=== PATIENT | female | born 1960 | race Two or more races ===

== ENCOUNTER 2019-10-18 11:25 | Inpatient (IN) | payer MEDICARE, OTHER ==
[~2019-10-18] VITALS: Ht 160 cm; Wt 57.1 kg
--- NOTE | 2019-10-18 12:56 | NUR ---
pt cold, gave her warm blanket
[2019-10-18] MEDS: CefTRIAXone/D5W-Rocephin 1gm 50 ML IV ONE ×2 (13:00→14:28)
[2019-10-18] MEDS ORDERED: Dextrose 10%-water IV solution 1,000 ML IV ONE (13:06)
[2019-10-18 13:28] LABS: BASOPHILS # (AUTO) 0.1 X10'3 (0-0.2); BASOPHILS % (AUTO) 1.7 % (0-1); EOSINOPHILS % (AUTO) 0.1 % (0-6); HEMATOCRIT 41.2 % (35.0-45.0); HEMOGLOBIN 13.4 g/dl (12.0-16.0); LYMPHOCYTES # (AUTO) 1.9 X10'3 (1.1-4.8); MEAN CORPUSCULAR HEMOGLOBIN 29.4 PG (27.0-31.0); MEAN CORPUSCULAR HGB CONC 32.5 g/dL (33.0-36.5); MEAN CORPUSCULAR VOLUME 90.5 FL (78-98); MEAN PLATELET VOLUME 8.5 FL (7.4-10.4); MONOCYTES # (AUTO) 0.3 X10'3 (0-0.9); MONOCYTES % (AUTO) 4.7 % (2-12); NEUTROPHILS # (AUTO) 3.8 X10'3 (1.8-7.7); NEUTROPHILS % (AUTO) 62.5 % (42-75); PLATELET COUNT 262 X10'3 (140-440); RED BLOOD COUNT 4.55 X10'6 (4.20-5.60); RED CELL DISTRIBUTION WIDTH 18.6 % (11.5-14.5)
[2019-10-18] MEDS ORDERED: FLUD0.1T PO (13:32)
[2019-10-18] MEDS ORDERED: FLUO-167 PO (13:32)
[2019-10-18] MEDS ORDERED: INSU100I31 SQ (13:32)
[2019-10-18] MEDS ORDERED: AMLO10TA PO (13:32)
[2019-10-18] MEDS ORDERED: ATOR40TA71 PO (13:32)
[2019-10-18] MEDS ORDERED: CARV6.253 PO (13:32)
[2019-10-18 13:33] LABS: ALANINE AMINOTRANSFERASE 21 U/L (12-78); ALBUMIN 2.5 G/DL (3.4-5.0); ALBUMIN/GLOBULIN RATIO 0.5 (1.1-1.5); ALKALINE PHOSPHATASE 155 IU/L (46-116); ANION GAP 8 (8-16); ASPARTATE AMINO TRANSFERASE 32 U/L (10-37); BILIRUBIN,TOTAL 0.3 MG/DL (0.1-1.0); BLOOD UREA NITROGEN 36 MG/DL (7-18); BUN/CREATININE RATIO 7.2 (6.6-38.0); CHLORIDE 103 MMOL/L (99-107); CREATININE 5.02 MG/DL (0.40-0.90); GLUCOSE 83 MG/DL (70-104); MAGNESIUM 1.9 MG/DL (1.5-2.4); POTASSIUM 4.7 MMOL/L (3.5-5.1); SODIUM 138 MMOL/L (135-145); TOTAL CARBON DIOXIDE 27.2 MMOL/L (24-32); TOTAL PROTEIN 7.4 G/DL (6.4-8.2); eGFR 9 ML/MIN
[2019-10-18] MEDS ORDERED: HYDROmorphone inj. 0.5 MG/0.5 ML DISP.SYRIN IV PRN (13:35)
[2019-10-18] MEDS ORDERED: bisacodyl 10mg suppository rectal RC PRN (13:35)
[2019-10-18] MEDS ORDERED: HYDROmorphone 1 mg/ml syringe IV PRN (13:35)
[2019-10-18] MEDS ORDERED: ondansetron/PF 4mg/2ml inj IV PRN (13:35)
[2019-10-18] MEDS ORDERED: HYDROcodone/acetaminophen 5mg/325mg tablet PO PRN (13:35)
[2019-10-18] MEDS ORDERED: acetaminophen 325mg tablet PO PRN (13:35)
[2019-10-18] MEDS ORDERED: diphenhydrAMINE 25mg capsule PO PRN (13:35)
[2019-10-18] MEDS ORDERED: heparin 1,000unit/ml 10ml vial 10 ML IV ONE (13:37)
[2019-10-18] MEDS ORDERED: heparin 1,000 units/ml 10ml inj IV ONE (13:40)
[2019-10-18] MEDS ORDERED: epoetin 20,000 units/ml inj IV ONE (13:40)
[2019-10-18] MEDS ORDERED: albumin (human) 25% 100ml IV 100 ML IV PRN (13:40)
[2019-10-18] MEDS: levoFLOXACIN-Levaquin 250mg/D5 50 ML IV SCH (13:40)
[2019-10-18] MEDS ORDERED: heparin 1,000 units/ml 10ml inj HE ONE ×2 (13:45)
[2019-10-18 13:58] LABS: HEMOGLOBIN A1C 5.6 % (4.5-6.2)
[2019-10-18 14:08] LABS: ANISOCYTOSIS 2+; HYPOCHROMASIA 1+; PLATELET ESTIMATE NORMAL; POLYCHROMASIA FEW
[2019-10-18 14:09] LABS: BURR CELLS FEW; ELLIPTOCYTES FEW; SCHISTOCYTES FEW; TARGET CELLS FEW; TEAR DROP CELLS FEW
[2019-10-18 15:23] VITALS: BP 158/72
--- NOTE | 2019-10-18 15:45 | NUR ---
sPOKE WITH DAUGHTER Shania. SHE WILL COME VISIT MOTHER AFTER WORK. PT IS TO GET DIALYSIS.
[2019-10-18 18:00] VITALS: BP 155/79
--- NOTE | 2019-10-18 18:00 | NUR ---
Received report from Debi NG. assumed care of patient.
--- NOTE | 2019-10-18 18:07 | NUR ---
Problems reprioritized. Patient report given, questions answered & plan of care reviewed with Pippa RN.
[2019-10-18] MEDS: heparin, porcine 5000 units/ml vial SQ SCH (19:58)
[2019-10-18] MEDS ORDERED: temazepam 15mg capsule PO PRN (21:00)
[2019-10-18 22:00] VITALS: BP 165/76
[2019-10-19 06:00] VITALS: BP 155/73
--- NOTE | 2019-10-19 06:10 | NUR ---
Patient in room ORTHO 4010. I have received report from Pippa and had the opportunity to ask questions and assume patient care.
--- NOTE | 2019-10-19 06:10 | NUR ---
Gave report to Emilia NG.
[2019-10-19 07:20] LABS: BASOPHILS # (AUTO) 0.1 X10'3 (0-0.2); BASOPHILS % (AUTO) 1.9 % (0-1); HEMATOCRIT 35.2 % (35.0-45.0); HEMOGLOBIN 11.7 g/dl (12.0-16.0); LYMPHOCYTES # (AUTO) 2.5 X10'3 (1.1-4.8); MEAN CORPUSCULAR HEMOGLOBIN 29.3 PG (27.0-31.0); MEAN CORPUSCULAR HGB CONC 33.1 g/dL (33.0-36.5); MEAN CORPUSCULAR VOLUME 88.5 FL (78-98); MEAN PLATELET VOLUME 7.9 FL (7.4-10.4); MONOCYTES # (AUTO) 0.3 X10'3 (0-0.9); MONOCYTES % (AUTO) 6.2 % (2-12); NEUTROPHILS # (AUTO) 2.1 X10'3 (1.8-7.7); NEUTROPHILS % (AUTO) 40.9 % (42-75); PLATELET COUNT 212 X10'3 (140-440); RED BLOOD COUNT 3.98 X10'6 (4.20-5.60); RED CELL DISTRIBUTION WIDTH 18.5 % (11.5-14.5)
[2019-10-19 07:47] LABS: ALANINE AMINOTRANSFERASE 20 U/L (12-78); ALBUMIN 2.1 G/DL (3.4-5.0); ALBUMIN/GLOBULIN RATIO 0.5 (1.1-1.5); ALKALINE PHOSPHATASE 124 IU/L (46-116); ANION GAP 5 (8-16); ASPARTATE AMINO TRANSFERASE 26 U/L (10-37); BILIRUBIN,TOTAL 0.2 MG/DL (0.1-1.0); BLOOD UREA NITROGEN 15 MG/DL (7-18); BUN/CREATININE RATIO 4.7 (6.6-38.0); CALCIUM 7.7 MG/DL (8.5-10.1); CHLORIDE 103 MMOL/L (99-107); CREATININE 3.22 MG/DL (0.40-0.90); GLUCOSE 115 MG/DL (70-104); MAGNESIUM 1.7 MG/DL (1.5-2.4); PHOSPHORUS 2.9 MG/DL (2.3-4.5); POTASSIUM 4.2 MMOL/L (3.5-5.1); SODIUM 137 MMOL/L (135-145); TOTAL CARBON DIOXIDE 28.7 MMOL/L (24-32); TOTAL PROTEIN 6.1 G/DL (6.4-8.2); eGFR 15 ML/MIN
[2019-10-19] MEDS: levoFLOXACIN-Levaquin 250mg/D5 50 ML IV SCH (08:51)
[2019-10-19] MEDS: heparin, porcine 5000 units/ml vial SQ SCH (08:52)
[2019-10-19 10:00] VITALS: BP 162/77
[2019-10-19] MEDS ORDERED: pneumococcal 23-VAL P-sac vacc 25 mcg/0.5ml vial IMVAC ONE (10:00)
--- NOTE | 2019-10-19 13:36 | NUR ---
DM/renal consults: Pt admit w/ hx ESRD on HD and DM A1C 5.6. Pt admit w/ low GLU but cannot remember what she ate prior to admit. Pt only takes 25 units Lantus HS per EMR. Given A1C <[address] at dialysis center w/ electrolytes WNL not appropriate for eds at this time. Addendum: 10/19/19 at [address] Amended: Links added.
--- NOTE | 2019-10-19 17:59 | NUR ---
Reviewed discharge instructions with pt and family. Pt's daughter, with whom she lives, verbalized understanding. Pt is alert and oriented. Pt's daughter assisted pt with dressing. Pt was wheeled downstairs where she will be driven home by her daughter.
[2019-10-19] MEDS ORDERED: carvedilol 6.25mg tablet PO SCH (20:00)
[2019-10-19] MEDS ORDERED: lactobacillus rhamnosus 10,000 MMU CELLS/CAPSULE PO SCH (20:00)
[2019-10-20] MEDS ORDERED: amLODIPine 5mg tablet PO SCH (08:00)
[2019-10-20] MEDS ORDERED: FLUoxetine 20mg capsule PO SCH (08:00)
[2019-10-20] MEDS ORDERED: atorvastatin 20mg tablet PO SCH (08:00)
== END 2019-10-19 17:55 | disposition home or self-care (01) | DRG 638 ==
LOC: ER 11:26 → ED HOLD 13:32 → ORTHO 4S 15:00
PROVIDERS: ADMIT Internal Medicine Critical Care Medicine; ATTEND Internal Medicine Critical Care Medicine
PROC: 3E0234Z Introduction of Serum, Toxoid and Vaccine into Muscle, Percutaneous Approach (ICD-10-PCS; principal; 2019-10-19)
DX: E11.649 Type 2 diabetes mellitus with hypoglycemia without coma (principal); I12.0 Hypertensive chronic kidney disease with stage 5 chronic kidney disease or end stage renal disease; N39.0 Urinary tract infection, site not specified; N18.6 End stage renal disease; E11.22 Type 2 diabetes mellitus with diabetic chronic kidney disease; F32.9 Major depressive disorder, single episode, unspecified; Z23 Encounter for immunization; Z79.4 Long term (current) use of insulin
CPT/HCPCS: 36415; 70450; 71045; 80053; 82948; 83036; 83605; 83735; 84100; 84145; 85025; 87040; 87081; 90732; 97161; 97530; 99285; G0257; G0378; J0696; J1170; J1644; J1956

== ENCOUNTER 2025-06-05 16:18 | Inpatient (IN) | payer MEDICARE, MEDICAID ==
[2025-06-05] VITALS (8 sets, daily range): BP systolic 93–191; BP diastolic 28–73; PULSE 59–70; RESP 16–31; O2SAT 94–100
[~2025-06-05] VITALS: Ht 152.4 cm; Wt 39.2 kg
[~2025-06-05 16:18] MED LIST: AMLO10TA PO; ATOR40TA71 PO; CARV6.253 PO; FLUO-167 PO
[2025-06-05 16:42] LABS: CREATININE 2.34 MG/DL (0.40-0.90); TOTAL CARBON DIOXIDE 30.8 MMOL/L (24-32); eCRCL 16 ML/MIN; eGFR 21 ML/MIN
[2025-06-05 16:43] LABS: MEAN PLATELET VOLUME 8.1 FL (7.4-10.4); RED CELL DISTRIBUTION WIDTH 20.6 % (11.5-14.5)
[2025-06-05 16:46] LABS: APTT 35 SECONDS (22-32); INR 1.3 INR
--- NOTE | 2025-06-05 16:46 | RADIOLOGY REPORT ---
Exam: CT CT STROKE ALERT History: aloc Technique: [address] images through the posterior fossa and the supratentorial compart ment were acquired without contrast and imaged using soft tissue and bone algorithms. RADIATION DOSE: DLP 846.72 mGy.cm; CTDI vol 46.06 mGy. Comparison: None Findings: There is no evidence of an intracranial hemorrhage, acute large vessel infarct, mass effect, or midli ne shift. There is mild to moderate cerebral atrophy. Chronic small-vessel ischemic changes. Moderate calcification of the carotid siphons. The calvarium, orbits, paranasal sinuses, sella, middle ears, and mastoids are unremarkable. The superficial soft tissues are within normal limits. Impression: 1. No acute intracranial abnormality.
--- NOTE | 2025-06-05 16:54 | ELECTROCARDIOGRAPH REPORT ---
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 Anthony Otoole Measurements Intervals [place] Rate: 75 P: 58 SC: 149 QRS: -36 QRSD: 95 T: 89 QT: 415 QTc: 464 Interpretive Statements Sinus rhythm RSR' in V1 or V2, probably normal variant LVH with secondary repolarization abnormality Electronically Signed On 06-05-2025 18:20:[address] Anthony Otoole Please click the below link to view image of tracing.
--- NOTE | 2025-06-05 16:59 | RADIOLOGY REPORT ---
CHEST RADIOGRAPH Indication: Stroke Alert Technique: Single frontal view of the chest was obtained Comparison: None FINDINGS: Lines and Tubes: Right IJ approach hemodialysis catheter terminating within the right atrium. Lungs: Interstitial prominence with perihilar opacities of bilateral lungs. Obscuration of the left hemidiaphragm. No pneumothorax. Cardiomediastinal contours: Borderline cardiomegaly Bones: No acute osseous abnormality. IMPRESSION: Borderline cardiomegaly with findings suggestive of congestive heart failure / multifocal pneumonia. Possible small left-sided pleural effusion.
[2025-06-05] MEDS ORDERED: iohexol 350 MG/ML 50ML vial IV ONE (17:14)
[2025-06-05 17:16] LABS: PLATELET ESTIMATE DECREASED
[2025-06-05] MEDS ORDERED: niCARDipine-NS 40mg/200ml IVPB 200 ML IV PRN ×2 (18:00→18:04)
--- NOTE | 2025-06-05 18:04 | Physician Documentation ---
History of Present Illness ~ Chief Complaint: Stroke Alert Stated Complaint: ALOC Time Seen by MD: 16:23 Source: EMS, EMS notes reviewed Mode of Arrival: EMS, Stretcher Exam Limitations: clinical condition HPI Chief Complaint: Altered mental status Caveat: Altered mental status, Nigerien-speaking Independent Historians: Paramedics History of Present Illness: Patient is a 64-year-old Nigerien-speaking woman brought in by paramedics from dialysis center because of altered mental status that was sudden 40 minutes into dialysis. Patient's last known well time was approximately 3:00 p.m.. Patient's pulse ox was on the low 90s on room air. Patient was noted to have audible gurgling and rhonchi. Patient was placed on 2 L nasal cannula and pulse ox is 96-98%. Patient's extremities are flaccid and patient's eyes are open. Patient does not follow commands. Patient is nonverbal. Review of systems: All systems were reviewed and are negative except for what is indicated in the history of present illness. Past Medical History: HTN, ESRD Past Surgical History: Av fistula right arm, dialysis catheter right chest Social History: Unknown Medications: Reviewed as documented Nursing Notes Allergies: Reviewed as documented in Nursing Notes Medication Reconciliation Allergies: Coded Allergies: No Known Allergies (Unverified , 10/18/19) Scheduled Amlodipine Besylate (Amlodipine Besylate), 1 TABLET PO DAILY, (Reported) Atorvastatin Calcium (Atorvastatin Calcium), 1 TABLET PO DAILY, (Reported) Carvedilol (Carvedilol), 1 TABLET PO BID, (Reported) Fluoxetine HCl (Fluoxetine HCl), 1 CAP PO DAILY, (Reported) Past Medical History Past Medical History: Diabetes Review of Systems All Other Systems at this time: Reviewed and Negative Unable to obtain complete ROS: altered mental status Physical Exam Vital Signs: RN Vital Signs have been reviewed: Yes, Heart Rate: 74, Respiratory Rate: 22, BP: 196/68, Pulse Oximetry: 93, Weight: 42.000 Oxygen Flow Rate: 0 Pulse Oximetry Reflects: adequate oxygenation General Appearance General Appearance: Critically ill-appearing, severe distress HEENT: Normal OP, moist oral mucosa, no extraocular movements, gaze is forward, opacification of the left pupil, right pupil is 3-4 mm and fixed, decreased gag reflex Neck: supple, normal ROM, trachea midline Pulmonary: Moderate respiratory distress, tachypneic, breath sounds equal, bilateral audible rhonchi Cardiac: RRR, no murmur, rub or gallop, Chest: Outwardly normal-appearing, dialysis catheter in the right chest GI: nondistended, soft, nontender, normal bowel sounds, no guarding, no rebound Extremities: normal ROM, no swelling, non-tender, av fistula in the right arm Skin: intact, dry, warm, no rashes Neuro: GCS of nine, unresponsive, extremities are flaccid seems to feel pain but does not move extremities Psych: Unable to assess Procedures Intubation Time of Intubation: 18:10 Intubation Method: orotracheal Endotracheal Tube Size: 7 Medications: Etomidate, other (Rocuronium) ETT Confirmation: Ascultation, CO2 Detector, Direct Visualization, Condensation in ETT Breath Sounds After Intubation: equal Intubation Complications: no complications Post Intubation Xray: Yes Progress Results/Orders Results/Orders Orders - JAMES GREEN MD Electrocardiogram (06/05/25 16:23) Urinalysis, Cult If Indicated (06/05/25 16:23) Chest,Single View (06/05/25 16:45) Ct Stroke Alert (06/05/25 16:30) * Vital Signs Routine* [id number] (06/05/25 16:23) * Blood Glucose Assessment * ONCE (06/05/25 16:23) * Npo Until Passed Bedside Swa (06/05/25 16:23) Nursing Swallow Screen (06/05/25 16:23) Straight Cath For Urine Sample (06/05/25 16:23) Cta Neck/Head (06/05/25 17:25) Levetiracetam-[id number]/100ml (Levetira (06/05/25 17:43) Chest,Single View (06/05/25 ) Nicardipine-Ns 40mg/200ml Ivpb (Cardene- (06/05/25 18:05) Propofol 1000mg/100ml Bottle (Diprivan I (06/05/25 18:25) Triglycerides (06/06/25 03:00) Triglycerides (06/13/25 03:00) Triglycerides (06/20/25 03:00) Triglycerides (06/27/25 03:00) Triglycerides (07/04/25 03:00) Completed Orders - JAMES GREEN MD Electrocardiogram (06/05/25 16:23) Cbc/Diff (06/05/25 16:23) BMP (06/05/25 16:23) Pt Inr (06/05/25 16:23) PTT (06/05/25 16:23) Type And Screen (06/05/25 16:23) Chest,Single View (06/05/25 16:45) Ct Stroke Alert (06/05/25 16:30) Cta Neck/Head (06/05/25 17:25) Iohexol 350mg/Ml 50ml Inj (Omnipaque 350 (06/05/25 17:14) Nicardipine-Ns 40mg/200ml Ivpb (Cardene- (06/05/25 18:00) Chest,Single View (06/05/25 ) Propofol 1000mg/100ml Bottle (Diprivan I (06/05/25 18:25) Vital Signs 06/05/25 06/05/25 06/05/25 06/05/25 16:20 16:34 16:34 17:13 Pulse 75 75 74 Resp 22 24 22 B/P (MAP) 209/74 196/69 196/68 (110) Pulse Ox 98 94 93 O2 Flow Rate 2.0 0 Laboratory Tests Test 06/05/25 16:27 White Blood Count 9.7 Red Blood Count 4.19 L Hemoglobin 10.8 L Hematocrit 35.0 Mean Corpuscular Volume 83.6 Mean Corpuscular Hemoglobin 25.9 L Mean Corpuscular Hemoglobin Concent 31.0 L Red Cell Distribution Width 20.6 H Platelet Count 96 L Mean Platelet Volume 8.1 Neutrophils (%) (Auto) 85.2 H Lymphocytes (%) (Auto) 10.7 L Monocytes (%) (Auto) 3.8 Eosinophils (%) (Auto) 0 Basophils (%) (Auto) 0.3 Neutrophils # (Auto) 8.2 H Lymphocytes # (Auto) 1.0 L Monocytes # (Auto) 0.4 Eosinophils # (Auto) 0.0 Basophils # (Auto) 0.0 CBC Comment Platelet Estimate Decreased Red Blood Cell Morphology Perf Polychromasia Few Basophilic Stippling Anisocytosis 3+ Target Cells Few Prothrombin Time 13.1 H INR International Normalized Ratio 1.3 Activated Partial Thromboplast Time 35 H Coagulation Comments Sodium Level 134 L Potassium Level 3.1 L Chloride Level 98 L Carbon Dioxide Level 30.8 Anion Gap 5 L Blood Urea Nitrogen 27 H Creatinine 2.34 H Estimated GFR/1.73 m2 21 BUN/Creatinine Ratio 11.5 Glucose Level 162 H Calcium Level 8.0 L Albumin 1.7 L Chemistry Comments Medical Decision Making Findings Differential diagnosis includes but is not limited to: Hemorrhagic stroke, thrombotic stroke, status epilepticus, electrolyte abnormalities, hypertensive encephalopathy EKG independent interpretation: Chest x-ray, single view, indication: Independent interpretation: Pulmonary vascular congestion, dialysis catheter present in the right chest, normal mediastinum, cardiomegaly Repeat chest x-ray, indication: Post intubation Impression: Cardiomegaly, dialysis catheter present, pulmonary vascular congestion, endotracheal tube above the jez CT without IV contrast, indication: Altered mental status Impression: No acute intracranial abnormality CTA of the head and neck, indication: Altered mental status Impression: Limited evaluation of the aortic arch, origin of proximal major arch vessels. [id number]-[id number] atherosclerotic calcification of the right cavernous and supraclinoid ICA with Mild to moderate atherosclerotic calcification of the left cavernous ICA and Moderate atherosclerotic calcification of the left supraclinoid ICA. Otherwise, no hemodynamically significant stenosis aneurysmal dissection involving the major intracranial and neck vessels. Tree-in-bud Opacities of bilateral upper lobes with ground-glass opacities of the left upper lobe . Correlate for infectious process. Laboratory data independent interpretation: CBC: Unremarkable, moderate anemia, hemoglobin 10.8 CMP: Sodium 134, mild hypokalemia potassium 3.1, BUN 27, creatinine 2.34 this is the patient's baseline as she has chronic end-stage renal disease PT elevated at 13.1, INR elevated 1.3, PTT elevated at 35 Urinalysis: Emergency department course/medical decision-making: Patient presents with altered mental status and hypertension. Patient critically ill patient's likely aspirated as she is unresponsive in likely not handling her secretions. CTA of the head is negative acute. No evidence of hemorrhagic stroke. CTA of the head and neck performed done to rule out basilar artery occlusion. No evidence of large vessel occlusion. Laboratory work is unremarkable. Patient will be started on Cardene drip to treat what might be hypertensive encephalopathy. Consultation/communications: 5:50 p.m..: Case discussed with our personal care aid Dr. Camara for admission. 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 I provided critical care services, which included medication orders, frequent reevaluations of the patient's condition and response to treatment, ordering and reviewing test results, and discussing the case with necessary consultants. Critical care time was exclusive of necessary procedure time. The critical care time associated with the care of the patient was 80 minutes. Signature Scribe Signature: No scribe Attestation: No [email or web address] JAMES GREEN MD Jun 05, 2025 18:04
[2025-06-05] MEDS: niCARDipine-NS 40mg/200ml IVPB 200 ML IV SCH (18:05)
--- NOTE | 2025-06-05 18:12 | RADIOLOGY REPORT ---
INDICATION: aloc COMPARISON: None TECHNIQUE:CTA head and neck with intravenous contrast. 3D/MIP image postprocessing was performed and images were used for interpretation and reporting. Radiation Dose Information: CT Dose: CTDI volume is 23.8 mGy. Dose-length product is 329.68 mGy*cm FINDINGS: CTA neck: Normal 3-vessel origin left-sided aortic arch motion artifact limits evaluation of the arch and proxi mal part of the major arch vessels. Mild atherosclerotic calcification of the origin and proximal sub clavian arteries. Otherwise, the subclavian arteries unremarkable. Artifact limits evaluation of the origin of the common carotid arteries. Mild atherosclerotic calcifi cation of bilateral carotid bulbs. Otherwise, the common carotid arteries and bilateral cervical ICA s unremarkable. Mild narrowing at the origin of the left vertebral artery. Otherwise, the vertebral arteries unremar kable with left dominant vertebral artery. CTA head: Bilateral ACAS, anterior communicating artery and bilateral MCAs are unremarkable. Xkpy-bu-ihkttlpi atherosclerotic calcification of the right cavernous and supraclinoid ICA with Mild to moderate ather osclerotic calcification of the left cavernous ICA and Moderate atherosclerotic calcification of the left supraclinoid ICA. Otherwise, bilateral intracranial ICAs unremarkable. 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 Mild hypoplasia of the right intracranial vertebral artery. The dur al venous sinuses opacify normally. Xuvd-cq-zwnmokxb body wall edema. Heterogeneous appearance of the thyroid gland. tree-in-bud Opacitie s of bilateral lungs with patching ground-glass opacities of the left upper lobe. Mild mucosal thicke joe of the mastoids. IMPRESSION: Limited evaluation of the aortic arch, origin of proximal major arch vessels. Gelw-ll-uerqnhwk atherosclerotic calcification of the right cavernous and supraclinoid ICA with Mild to moderate atherosclerotic calcification of the left cavernous ICA and Moderate atherosclerotic calc ification of the left supraclinoid ICA. Otherwise, no hemodynamically significant stenosis aneurysma l dissection involving the major intracranial and neck vessels. Tree-in-bud Opacities of bilateral upper lobes with ground-glass opacities of the left upper lobe . Correlate for infectious process.
[2025-06-05] MEDS: propofol 1000mg/100ml bottle 100 ML IV ONE ×3 (18:30→18:38)
[2025-06-05] MEDS ORDERED: morphine 4 MG/ML inj SYRINge IV PRN (18:35)
[2025-06-05] MEDS: LidoCAINE 2% Topical Jelly 11mL syringe (UROJET) TOP ONE (18:35)
[2025-06-05] MEDS ORDERED: ondansetron/PF 4mg/2ml inj IV PRN (18:35)
[2025-06-05] MEDS ORDERED: albuterol 2.5 MG/3 ML nebule NEB PRN (18:35)
[2025-06-05] MEDS ORDERED: magnesium hydroxide 30ml (MOM) UD suspension PO PRN (18:35)
[2025-06-05] MEDS ORDERED: ipratropium/albuterol 3ml nebule NEB PRN (18:35)
--- NOTE | 2025-06-05 18:42 | HISTORY AND PHYSICAL-Residence ---
History & Physical Providers to CC Resident Creating Document: SANDRO HARRISON, LIVIA ~ History of Present Illness Reason for Admit\Complaint: Hypertensive emergency with acute metabolic encephalopathy History of Present Illness 64-year-old Sami-speaking woman(poor historian-non verbal) brought in by paramedics from dialysis center because of altered mental status that was sudden 40 minutes into dialysis. Patient's last known well time was approximately 3:00 p.m.. Patient's pulse ox was on the low 90s on room air. Patient was noted to have audible gurgling and rhonchi. Patient was placed on 2 L nasal cannula and pulse ox is 96-98%. Patient's extremities are flaccid and patient's eyes are open. Patient does not follow commands. Patient is nonverbal. She is unable to protect the airway and hearing the gurgling sounds . Reason for ICU consultation: Acute metabolic encephalopathy with hypertensive emergency. Intubation and mechanical ventilation for TBT(tracheobronchial toilet) Allergies: Coded Allergies: No Known Allergies (Unverified , 10/18/19) Home Medications Home Medications Active Reported Carvedilol 6.25 Mg Tablet 1 Tablet PO BID Fluoxetine HCl 20 Mg Capsule 1 Cap PO DAILY 30 Days Amlodipine Besylate 10 Mg Tablet 1 Tablet PO DAILY Atorvastatin Calcium 40 Mg Tablet 1 Tablet PO DAILY Past Medical History Past Medical History Hypertension ESRD Past Surgical History Surgical History Comment Past Surgical History: Av fistula right arm, dialysis catheter right chest Past Social History Social History Comment Unknown ROS All Other Systems: Reviewed and Negative ROS Could not able to review in full. Unable to obtain: altered mental status Exam Vitals: Vital Signs Date Time Temp Pulse Resp B/P (MAP) Pulse Ox O2 Delivery O2 Flow Rate FiO2 06/05/25 18:30 198/75 06/05/25 18:14 70 19 99 50 06/05/25 17:13 0 General: General Appearance: Critically ill-appearing, severe distress. Intubated and on mechanical ventilation with FiO2 of 50 HEENT: Normal OP, moist oral mucosa, no extraocular movements, gaze is forward, opacification of the left pupil, right pupil is 3-4 mm and fixed, decreased gag reflex Neck: supple, normal ROM, trachea midline Pulmonary: Moderate respiratory distress, tachypneic, breath sounds equal, diffuse bilateral crepitations over infrascapular and interscapular and suprascapular areas Cardiac: RRR, no murmur, rub or gallop, Chest: Outwardly normal-appearing, dialysis catheter in the right chest GI: nondistended, soft, nontender, normal bowel sounds, no guarding, no rebound Extremities: normal ROM, no swelling, non-tender, av fistula in the right arm Skin: intact, dry, warm, no rashes Neuro: GCS of nine, unresponsive, extremities are flaccid seems to feel pain but does not move extremities Psych: Unable to assess Diagnostic Data Last Recorded Lab Results: 06/05/25 1627 06/05/25 1627 Diagnostic Data: Laboratory Tests Test 06/05/25 16:27 Prothrombin Time 13.1 SECONDS (9.0-12.0) H INR International Normalized Ratio 1.3 INR Activated Partial Thromboplast Time 35 SECONDS (22-32) H Coagulation Comments Advance Care Planning Advanced Care planning: Add on additional 30 min Additional Plan Cardiorespiratory: Acute hypoxemic respiratory failure Hypertensive emergency with Acute pulmonary edema Multifocal bilateral pneumonia, aspiration pneumonia Blood pressures are elevated to is BP of 200s ABG is showing elevated pCO2, PO2 80.6, bicarbonate 32 On vanc pharmacy to dose and Zosyn 3.375 q.12h to cover multifocal bacterial pneumonia Gram-positive, Gram-negative, anaerobic considering her multiple hemodialysis cycles with [facility] She was not able to protect airway and we intubated for tracheobronchial toilet and currently on FiO2 of 50 Sedated with fentanyl and propofol which could help with lowering the blood pressure Started on nicardipine drip Acute metabolic encephalopathy Bilateral internal carotid artery disease without significant stenosis Intubated and sedated with fentanyl and propofol and on mechanical ventilation It could be secondary to hypertensive emergency with bilateral aspiration pneumonia On nicardipine drip, vanc and Zosyn based on EGFR Renal: JAYNE on chronic kidney disease Hyponatremia Hypokalemia Hypochloremia Serum creatinine is 2.34 Baseline creatinine on 10/18/2019 is 5.02 and 3.22 on 10/19/2019 We will continue to monitor CMP We will consult home planning consultant salesperson in a.m. for possible hemodialysis Hematological: Normocytic hypochromic anemia Thrombocytopenia Hemoglobin and hematocrit and the thrombocytosis on lower side it could be secondary to underlying chronic kidney disease Continue to monitor H and H and we will transfuse if less than 7 Code status: Full code Diet: NPO DVT prophylaxis: Heparin Lines and tubes: Peripheral lines/right internal jugular vein central line/intubation and on mechanical ventilation Prognosis: Guarded Sandro Harrison ICU resident, PGY 2 Date of Service: Jun 05, 2025 Billing Provider[facility]DR[facility] Jun 05, 2025 18:42
--- NOTE | 2025-06-05 18:48 | RADIOLOGY REPORT ---
CHEST RADIOGRAPH Indication: INTUBATION Technique: DI CHEST,SINGLE VIEW COMPARISON: None FINDINGS: Right IJ Perma catheter tip projects over the cavoatrial junction. Endotracheal tube tip p rojects 3.3 cm above the jez. Nasogastric tube projects towards stomach. The cardiac silhouette is enlarged. The lungs demonstrate bilateral patchy airspace opacities. The pu lmonary vasculature is prominent. Small bilateral pleural effusions. Aortic atherosclerotic disease. Epicardial pacer leads. There is no pneumothorax. IMPRESSION: As above
[2025-06-05 18:50] LABS: ABG BASE EXCESS 6.3 mmol/L (-2.0-3.0); ABG HCO3 32.0 mmol/L (21.0-28.0); ABG OXYGEN SATURATION 96.3 % (94.0-98.0); ABG PCO2 (T) 49.6 mmHg (32.0-45.0); ABG PH (T) 7.424 (7.350-7.450); ABG PO2 (T) 80.6 mmHg (83.0-108.0); ALLEN'S TEST Modified; FCOHb 1.2 % (0.5-1.5); FHHb 3.6 % (0.0-5.0); FIO2 50.0 mmHg/%; FMetHb 0.3 % (0.0-1.5); FO2Hb 94.9 % (94.0-98.0); MODE VENT - AC/PRVC; PATIENT TEMPERATURE 36.0; PEEP 5 cm H2O; RESPIRATORY RATE 12 b/min; TIDAL VOLUME 250 mL; TOTAL HEMOGLOBIN 11.3 G/dl (12.0-16.0)
[2025-06-05] MEDS: LevETIRAcetam 1,000MG in NS 100ml IV.SOLN premix IV SCH (18:57)
[2025-06-05] MEDS: CefTRIAXone 2gm/D5W 50ml BAG 50 ML IV SCH (19:00)
[2025-06-05 19:10] LABS: PHOSPHORUS 1.7 MG/DL (2.3-4.5)
[2025-06-05] MEDS: PERFLUTREN PROTEIN-A MICROSPHR (Optison) 0.22 MG/ML 3ML VIAL IV ONE (19:57)
--- NOTE | 2025-06-05 20:43 | PROCEDURE NOTE- Residance ---
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 Kearns & Dr. 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 Kearns and Dr. Sandro Ruff The procedure was emergent, the patient was unable to provide consent, and a designee was not immediately available. PROCEDURE SUMMARY: The [facility] Central Line Insertion Practices form was completed by an independent observer. starting with the first handwash prior to starting sterile technique. A time out was performed. Our hands were washed immediately prior to the procedure. we wore a surgical cap, mask with protective eyewear, full gown and sterile gloves throughout the procedure. The patient was placed in Trendelenburg position. RIGHT side neck with chest was prepped using chlorhexidine scrub and draped in sterile fashion using a full drape and sterile probe cover and sterile gel employed. The medial and lateral heads of the sternocleidomastoid muscle were identified as was the carotid pulse. The Internal Jugular vein was identified using the ultrasound. Anesthesia was achieved over the vein using 1% lidocaine. Using real-time out of plane guidance, the introducer needle was inserted into the Internal Jugular vein under direct ultrasound visualization. Venous blood was withdrawn. The syringe was removed and a guidewire was advanced into the introducer needle. The guidewire was visualized in the Internal Jugular Vein by ultrasound. A small incision was made at the skin surface with a scalpel and the introducer needle was exchanged for a dilator over the guidewire. After appropriate dilation was obtained, the dilator was exchanged over the wire for a central venous catheter. The wire was removed and the catheter was sutured in placed. A sterile sorbaview shield was placed over the catheter at the insertion site. The patient tolerated the procedure without any hemodynamic compromise. At time of procedure completion, all ports aspirated and flushed properly. Post- procedure chest x-ray is normal. Estimated blood loss is less than 5 mL Estimated Blood Loss Less than 5 mL Complication None X-Ray Findings No pneumothorax Date of Service: Jun 05, 2025 Billing Provider: ALEXSANDRA KEARNS MD, VENKATESH, RES Jun 05, 2025 20:43
--- NOTE | 2025-06-05 21:12 | RADIOLOGY REPORT ---
CHEST RADIOGRAPH Indication: CENTRAL LINE PLACEMENT Technique: Single frontal view of the chest was obtained COMPARISON: DI CHEST,SINGLE VIEW on DOS: 06/05/25, DI CHEST,SINGLE VIEW on DOS: 06/05/25 FINDINGS: Lines and Tubes: New right internal jugular central venous catheter tip projects over the distal supe rior vena cava. Remaining lines and tubes unchanged. Lungs: Stable patchy multifocal bilateral pulmonary airspace disease and small bilateral pleural effu sions. No pneumothorax. Cardiomediastinal contours: Unremarkable Bones: Unremarkable IMPRESSION: 1. Stable patchy multifocal bilateral pulmonary airspace disease and small bilateral pleural effusion s. 2. New right internal jugular central venous catheter. Remaining lines and tubes unchanged.
[2025-06-05] MEDS: vancomycin/NS 1 GM ADD-VANTAGE 250 ML X 1 DOSE IV PRN (21:21)
[2025-06-06] VITALS (40 sets, daily range): BP systolic 77–170; BP diastolic 29–56; PULSE 43–77; RESP 0–33; TEMP 97.7; O2SAT 87–100
[2025-06-06] MEDS: piperacillin/tazo 3.375gm/50ml 50 ML IV SCH (00:28)
[2025-06-06] MEDS: heparin, porcine 5000 units/ml vial SQ SCH (00:53)
--- NOTE | 2025-06-06 01:25 | [facility]URO CONSULT REPORT ---
[facility] Procedure Note [facility] Procedure Note Consult [facility] Note # Demographics Consult Type: Acute Stroke Level 1 (0-4.5 hrs) Patient Location: Emergency Room First Name: MADDI Last Name: KEYON Date of : 11/25/1963 Age: 61 Gender: Female Facility: [facility] Time of Initial Page (): 06/05/2025 16:23 Time of Return Call ( Time): 06/05/2025 16:25 # HPI History: 61 yo F [place] speaking CKD on HD, 40 min into HD unresponsive, LKN 3 pm AT HCT SBP 209 Aspirated, rhonchi, staring, R pupil 3-4 mm fixed, L pupil opacified likely blind No movement Getting CXR when on video # Scores Time of exam and NIHSS (): 06/05/2025 16:45 Motor Arm Left 5a: [3] = No effort against gravity Motor Arm Right 5b: [3] = No effort against gravity Motor Leg Left 6a: [3] = No effort against gravity NIHSS Total: 9 # Data Head CT: - per radiologist read - no bleed CTA Head: - no large vessel occlusion - per radiologist read CTA Neck: - patent vessels - per radiologist read signs of aspiration/infection in lungs # Assessment Impression: - Altered Mental Status Unresponsive, will test broadly, treat for possible seizure, obtain CTA to rule out basilar occlusion. # Plan Thrombolytic/Intervention: Possible IA candidate Thrombolytic Exclusion: non-focal exam, poorly responsive Possible IA Candidate: - CTA pending Target Blood Pressure: - SBP < 220 - DBP < 120 Labs: - ua - urine drug screen - comprehensive metabolic panel - CBC - Ammonia - TSH - B12 EtOH Imaging: (urgency: STAT): - CT Angiogram Head and CT Angiogram Neck AND call back with results if abnormal Imaging: (urgency: routine): - MRI Brain without contrast Diagnostic Test: - EEG Medication: - aspirin 81 mg daily - levetiracetam (Keppra) 500 mg twice daily Keppra 60 mg/kg, Ativan 1 mg IV Other: - If patient has any neurological deterioration please call me back immediately - permissive hypertension - I have discussed my recommendations with the referring provider # Logistics Attestation of consult completion: The patient is located at: [facility]. Facility staff participated in the visit. I performed this telemedicine visit from my offsite office utilizing interactive 2 way audio and visual telecommunication technology. Total time spent in telemedicine encounter: I spent 20 minutes reviewing clinical data and/or imaging, obtaining history, examining the patient, communicating with the onsite care team, and in preparation of this report. # Demographics First Name: MADDI Last Name: [facility] Facility: [facility] Electronically signed at 06/06/2025 01:24 ([place] Time) by Felipe Modi MD Neuro Consult Order placed for: Yes FELIPE MODI MD Jun 06, 2025 01:25
[2025-06-06] MEDS: VANCOMYCIN LEVEL IV SCH (03:00)
[2025-06-06 03:12] LABS: ABG BASE EXCESS 2.0 mmol/L (-2.0-3.0); ABG HCO3 26.5 mmol/L (21.0-28.0); ABG OXYGEN SATURATION 95.7 % (94.0-98.0); ABG PCO2 (T) 39.3 mmHg (32.0-45.0); ABG PH (T) 7.442 (7.350-7.450); ABG PO2 (T) 74.2 mmHg (83.0-108.0); ALLEN'S TEST Modified; FCOHb 1.4 % (0.5-1.5); FHHb 4.2 % (0.0-5.0); FIO2 35.0 mmHg/%; FMetHb 0.3 % (0.0-1.5); FO2Hb 94.1 % (94.0-98.0); MODE VENT - AC/PRVC; PATIENT TEMPERATURE 36.0; PEEP 5 cm H2O; RESPIRATORY RATE 16 b/min; TIDAL VOLUME 250 mL; TOTAL HEMOGLOBIN 11.0 G/dl (12.0-16.0)
[2025-06-06] MEDS: dextrose 50%-water 50ml dispensing syringe IV ONE ×2 (03:18→14:56)
[2025-06-06 03:32] LABS: MEAN PLATELET VOLUME 8.3 FL (7.4-10.4); RED CELL DISTRIBUTION WIDTH 20.6 % (11.5-14.5)
[2025-06-06 03:45] LABS: CREATININE 2.78 MG/DL (0.40-0.90); TOTAL CARBON DIOXIDE 31.8 MMOL/L (24-32); eCRCL 13 ML/MIN; eGFR 17 ML/MIN
[2025-06-06] MEDS: potassium Cl 20mEq/100mL bag 100 ML IV SCH (06:16)
--- NOTE | 2025-06-06 06:44 | RADIOLOGY REPORT ---
CHEST RADIOGRAPH Indication: vented Technique: Single frontal view of the chest was obtained COMPARISON: DI CHEST,SINGLE VIEW on DOS: 06/05/25, DI CHEST,SINGLE VIEW on DOS: 06/05/25, DI CHEST,SING LE VIEW on DOS: 06/05/25 FINDINGS: Lines and Tubes: Unchanged. Lungs: Mild interval progression in multifocal bilateral pulmonary airspace disease. Pleura: No effusion. No pneumothorax. Cardiomediastinal contours: Unremarkable Bones: Unremarkable IMPRESSION: 1. Mildly Progressive multifocal bilateral pulmonary airspace disease. 2. Lines and tubes unchanged.
[2025-06-06] MEDS ORDERED: magnesium Cl slow-release 64mg tablet PO PRN (07:40)
[2025-06-06] MEDS ORDERED: potassium Cl 40MEQ/1/2NS 520ml 520 ML IV PRN (07:40)
[2025-06-06] MEDS ORDERED: magnesium sulf-water 2g/50mL 50 ML IV PRN (07:40)
[2025-06-06] MEDS ORDERED: magnesium sulf-water 4G/100mL 100 ML IV PRN ×2 (07:40→10:45)
[2025-06-06] MEDS ORDERED: potassium Cl 40MEQ/270ML bag 270 ML IV PRN (07:40)
[2025-06-06] MEDS ORDERED: potassium Cl 20 mEq SR tablet PO PRN ×2 (07:40)
[2025-06-06] MEDS ORDERED: aspirin 81mg, enteric-coated 1 TAB TABLET.DR PO SCH (08:00)
[2025-06-06] MEDS ORDERED: azithromycin/NS 500mg/250ml 250 ML IV SCH (08:00)
--- NOTE | 2025-06-06 09:31 | CONSULTATION REPORT - RESIDENT ---
Consult Providers to CC Resident Creating Document: EDWIGETYRADESTINI RES History of Present Illness Reason for Admit\Complaint: AMS History of Present Illness This is a 64-year-old female patient with a past medical history of ESRD on dialysis was transferred to the hospital from the dialysis center after she collapsed within 40 minutes of starting her dialysis. Most of the history has been obtained from the ER physicians notes and ICU physicians. No further history has been available to us. Patient is intubated and sedated on our exam. She is kindly being treated for acute hypoxemic respiratory failure from possible aspiration pneumonia and altered mental status with kindly unidentified etiology. Allergies: Coded Allergies: No Known Allergies (Unverified , 10/18/19) Home Medications Home Medications Active Reported Carvedilol 6.25 Mg Tablet 1 Tablet PO BID Fluoxetine HCl 20 Mg Capsule 1 Cap PO DAILY 30 Days Amlodipine Besylate 10 Mg Tablet 1 Tablet PO DAILY Atorvastatin Calcium 40 Mg Tablet 1 Tablet PO DAILY Past Medical History Past Medical History Hypertension, depression, ESRD, hyperlipidemia Past Surgical History Surgical History Comment Unknown Past Social History Social History Comment Unknown ROS ROS Unable to be obtained Exam Vitals: Vital Signs Date Time Temp Pulse Resp B/P (MAP) Pulse Ox O2 Delivery O2 Flow Rate FiO2 06/06/25 08:38 65 19 98 35 06/06/25 06:00 112/35 (60) Mechanical Ventilator 06/06/25 02:00 96.8 06/05/25 18:35 0 General: General: Intubated and sedated Resp: Forced bilateral breath sounds Heart: Regular Rate and rhythm, normal S1 and S2 without murmur, rub or gallop. Abdomen: Soft and non tender no organomegaly Extremities: No cyanosis,clubbing or edema. Right upper arm AV fistula Skin: Warm and Dry. Diagnostic Data Last Recorded Lab Results: 06/06/25 0300 06/06/25 0300 Diagnostic Data: Laboratory Tests Test 06/05/25 16:27 Prothrombin Time 13.1 SECONDS (9.0-12.0) H INR International Normalized Ratio 1.3 INR Activated Partial Thromboplast Time 35 SECONDS (22-32) H Coagulation Comments Additional Plan ESRD Dialysis at [facility] Unknown regular scheduled dates Creatinine today 2.7, with hypokalemia and normal other electrolytes Low blood pressures, unable to tolerate dialysis. Plan for CRRT today. Continue replacing the potassium. 4K bath ordered We will continue closely following CMP and performed dialysis accordingly Acute hypoxemic respiratory failure: Flash pulmonary edema versus aspiration pneumonia Intubated and mechanically ventilated; minimal oxygen requirements Chest x-ray reveals multifocal bilateral opacities. CT reveals tree-in-bud opacities; in line with pneumonia Currently being managed empirically with antibiotics including vanc, Zithromax and Zosyn. Recommend using the antibiotics with dialysis CRRT to help pulmonary edema Acute metabolic encephalopathy: CT head and CTA head ruled out acute stroke and vascular abnormalities intracranially Follow tox screen Follow fluoxetine levels; however patient was brought in with flaccidity We will benefit from contacting family regarding any recent travel history Currently being evaluated by an EEG Tele neurology recommends Keppra and aspirin. Also recommends MRI head Lines: PIV, dialysis catheter Code status: Full code 75 minutes spent in consultation, evaluation, care coordination Destini Sarmiento PGY3, Internal medicine resident Date of Service: Jun 06, 2025 Billing Provider: ODIN RILEY III, DEEPANJALI, RES Jun 06, 2025 09:31 ODIN RILEY III, DO Jun 06, 2025 15:50
[2025-06-06] MEDS: FENTANYL-0.9 % NACL/PF 100 ML IV SCH (09:52)
[2025-06-06] MEDS ORDERED: NORepinephrine 8mg/ 250ml NS 250 ML IV PRN (10:05)
[2025-06-06] MEDS: NORepinephrine 8mg/ 250ml NS 250 ML IV ONE (10:43)
[2025-06-06] MEDS ORDERED: calcium chloride inj. 1,000 MG in normal saline 100ml IV soln 100 ML IV PRN (10:45)
--- NOTE | 2025-06-06 12:54 | PROGRESS NOTE- Residence ---
Progress Note - Resident Providers to CC Resident Creating Document: ASHELY HARRISON RES ~ Antibiotic Timeout Antibiotic Ordered?: Yes Subjective Seen and examined the patient at bedside. Not responding to verbal commands. Blood pressure is on soft side today but initially admitted for hypertensive emergency with blood pressures more than 200. Did not make any urine. Objective Vital Signs Date Time Temp Pulse Resp B/P (MAP) Pulse Ox O2 Delivery O2 Flow Rate FiO2 06/06/25 11:00 20 35 06/06/25 11:00 97.7 72 126/47 (73) 98 Mechanical Ventilator 06/05/25 18:35 0 Result Diagram: 06/06/25 0300 06/06/25 0300 General Appearance: Critically ill-appearing, in mild distress. Intubated and on mechanical ventilation with FiO2 of 35% and PEEP of 5 and sedated with fentanyl and propofol HEENT: Normal OP, moist oral mucosa, no extraocular movements, gaze is forward, opacification of the left pupil, right pupil is 3-4 mm and fixed, decreased gag reflex Neck: supple, normal ROM, trachea midline Pulmonary: Moderate respiratory distress, tachypneic, breath sounds equal, bilateral crepitations over infrascapular and interscapular and suprascapular areas improved a little bit Cardiac: RRR, no murmur, rub or gallop, Chest: Outwardly normal-appearing, dialysis catheter in the right chest GI: nondistended, soft, nontender, normal bowel sounds, no guarding, no rebound Extremities: normal ROM, no swelling, non-tender, av fistula in the right arm Skin: intact, dry, warm, no rashes Neuro: unresponsive, extremities are flaccid seems to feel pain but does not move extremities Coagulation Studies Laboratory Tests Test 06/05/25 16:27 Prothrombin Time 13.1 SECONDS (9.0-12.0) H INR International Normalized Ratio 1.3 INR Activated Partial Thromboplast Time 35 SECONDS (22-32) H Coagulation Comments Advance Care Planning Advanced Care planning: Add on additional 30 min Plan Plan Cardiorespiratory: Acute hypoxemic respiratory failure Hypertensive emergency with Acute pulmonary edema Multifocal bilateral pneumonia, aspiration pneumonia Blood pressures are elevated to is BP of 200s ABG is showing elevated pCO2, PO2 80.6, bicarbonate 32 On vanc pharmacy to dose and Zosyn 3.375 q.12h to cover multifocal bacterial pneumonia Gram-positive, Gram-negative, anaerobic considering her multiple hemodialysis cycles with [facility] She was not able to protect airway and we intubated for tracheobronchial toilet and currently on FiO2 of 50 Sedated with fentanyl and propofol which could help with lowering the blood pressure Started on nicardipine drip 06/06/2025 Blood pressure is soft in the morning. Discontinue nicardipine, ceftriaxone and we are doing low dose of fentanyl and propofol sedation in view of soft blood pressure. We will continue vanc and Zosyn. Serum lactic acid is normal and procalcitonin is 13.76, elevated. Ordered troponin, proBNP, sputum gram staining & culture is ordered. Acute metabolic encephalopathy Bilateral internal carotid artery disease without significant stenosis Intubated and sedated with fentanyl and propofol and on mechanical ventilation It could be secondary to hypertensive emergency with bilateral aspiration pneumonia Discontinued nicardipine drip, On vanc and Zosyn based on EGFR Ordered EEG, MRI brain, ethanol, TSH, ammonia, drug screen per neurologist consultation we will follow up with the results. Started on aspirin per tele neurologist consultation Renal: JAYNE on chronic kidney disease Hyponatremia, resolved Hypokalemia Hypochloremia, resolved Hypocalcemia Serum creatinine is 2.34 Baseline creatinine on 10/18/2019 is 5.02 and 3.22 on 10/19/2019 We will continue to monitor CMP We will consult gasket supervisor in a.m. for possible hemodialysis 06/06/[address] Miranda. He is on board. On CVVH to remove fluid overload. Serum creatinine is 2.78, with EGFR of 17, potassium is 2.7 replacing per potassium replacement protocol Getting the Retacrit 5000 international units because hemoglobin is less than 10 Hematological: Normocytic hypochromic anemia Thrombocytopenia Hemoglobin and hematocrit and the thrombocytosis on lower side it could be secondary to underlying chronic kidney disease Continue to monitor H and H and we will transfuse if less than 7 06/06/2025: Held heparin in view of platelet count 68. Severe Protein malnutrition hypoalbuminemia On tube feeding at the rate of 45 mL/hour Code status: Full code Diet: NPO DVT prophylaxis: Heparin Lines and tubes: Peripheral lines/right internal jugular vein central line/intubation and on mechanical ventilation Prognosis: Guarded Ashely Harrison ICU resident, PGY 2 Patient's case discussed during morning rounds, morning report and during multidisciplinary rounds. I agree with the above assessment and plan. Date of Service: Jun 06, 2025 Billing Provider: ALEXSANDRA KEARNS MD, VENKATESH, [facility] Jun 06, 2025 12:54 ALEXSANDRA KEARNS MD Jun 08, 2025 09:28
--- NOTE | 2025-06-06 12:58 | RADIOLOGY REPORT ---
PROCEDURE: MR MRI HEAD INDICATION: Acute metabolic encephalopathy with NIHSS score of 9 EXAM DATE: 06/06/2025 12:17 PM COMPARISON: None TECHNIQUE: MRI of the brain without intravenous contrast. FINDINGS: Diffusion weighted images of the brain demonstrate no evidence of acute infarction. There is no evidence of acute intracranial hemorrhage, extra-axial collection, mass effect, midline s hift, herniation or hydrocephalus. [id number] cerebral atrophy. Diffuse periventricular and deep white matter signal abnormality with involvement of the vandana and cer ebellum. There are no signal abnormalities on the susceptibility weighted sequences. The major vascular flow voids are present. Left mastoid effusion. The surrounding soft tissues and osseous structures are unremarkable. IMPRESSION: 1. No evidence of acute infarction, intracranial hemorrhage, mass effect or hydrocephalus. Mild-to-mo derate cerebral atrophy. Diffuse white matter abnormality be related to chronic microvascular ischem ic disease or metabolic disorder. Clinical correlation and continued follow-up is recommended. Left mastoid effusion. HS:Y
[2025-06-06] MEDS ORDERED: rocuronium 10mg/ml inj IV ONE (13:00)
[2025-06-06] MEDS ORDERED: acetaminophen 325mg/10.15ml oral unit dose solution OGT PRN (13:15)
[2025-06-06] MEDS ORDERED: POTASSIUM CHLORIDE 20 MEQ/15 ML oral solution OGT PRN ×2 (13:16→13:17)
[2025-06-06] MEDS ORDERED: magnesium hydroxide 30ml (MOM) UD suspension OGT PRN (13:16)
[2025-06-06] MEDS ORDERED: TRAM50TA2 PO (14:27)
[2025-06-06] MEDS ORDERED: CARV-50 PO (14:28)
[2025-06-06] MEDS ORDERED: DOCU100C41 PO (14:29)
[2025-06-06] MEDS ORDERED: AMLO2.5T2 PO (14:31)
[2025-06-06] MEDS ORDERED: POLY17PO10 PO (14:31)
[2025-06-06] MEDS ORDERED: FOLI0.8T22 PO (14:31)
--- NOTE | 2025-06-06 18:08 | [facility] NEURO CONSULT REPORT ---
[facility] Procedure Note [facility] Procedure Note Consult [facility] Note # Demographics Type of EEG Read: - Routine EEG - video Patient Location: Inpatient First Name: Tano Last Name: Pa Date of : 1960 Age: 64 Gender: Female Facility: [facility] Time of Initial Page ( Time): 06/06/2025 09:35 Time of Return Call ( Time): 06/06/2025 09:36 # EEG Interpretation Start Time of EEG Read ( Time): 06/06/2025 09:09 Stop Time of EEG Read (): 06/06/2025 09:52 Duration: 0h 43m Technical Details: - The EEG electrodes were placed using the standard International 10-20 system of electrode placement. Video and an accessory EKG lead were used during the course of this study. - This study was recorded using the [employer] EEG software Indication: - altered mental status # Description Phases Captured: - drowsy Symmetry: symmetric Posterior Dominant Rhythm: poorly defined Amplitude: normal Reactivity: no Variability: yes Continuity: continuous EKG: NSR # Abnormalities Epileptiform Abnormalities: - NOT present Focal Slowing: no Seizure: - NOT present Artifact: muscle and movement # Impression Impression: abnormal Diffuse Slowing # Clinical Correlation Clinical Correlation: Diffuse slowing is non-specific and may be seen in the setting of diffuse cerebral dysfunction; such as toxic/metabolic/infectious encephalopathy or heavily sedating medication use. # Demographics First Name: Tano Last Name: Pa Facility: [facility] Neuro Consult Order placed for: Yes MISTI CUEVA MD Jun 06, 2025 18:08
--- NOTE | 2025-06-06 19:02 | CARDIOLOGY REPORT ---
APPROVED REPORT EXAM: Comprehensive 2D, Doppler, and color-flow Echocardiogram. Patient Location: 2010 Blood Pressure: 135/74 mmHg Heart Rate: 73 bpm Rhythm: NSR Indications Hypertension No previous echo Hand Paster unknown 2D Dimensions LA Diam4.1 cm IVSd 1.2 (0.7-1.1cm) LVDd 4.3 cm PWd 1.2 (0.7-1.1cm) IVSs 1.6 (0.8-1.2cm) LVDs 3.1 (2.5-4.0cm) Aortic Root(2D) 2.7 cm PWs 1.4 (0.8-1.2cm) LVOT Diameter 1.88 (1.8-2.4cm) LVEF(%) 53.3 (>50%) Ao Asc Diam.2.83 cmIVC 16.01 mm FS (%) 27.2 % SV 44.3 ml CO 3.2 L/min M-Mode Dimensions MV EPSS 1.0 (<0.5cm) Aortic Valve AoV Peak Hunter. 112.8 cm/s AoV VTI 22.9 cm AO Peak GR. 5.1 mmHg AO Mean GR. 3 mmHg LVOT VTI 20.30 cm LVOT Peak Hunter. 106.6 cm/s WILY(VTI)/BSA 2.45 cm2/m2 WILY (VTI) 2.45 cm2 Mitral Valve MV E Velocity 88.4 cm/s MV Peak Gr. 5 mmHg MV DECEL TIME 212 ms MV A Velocity 81.6 cm/s MV PHT 56 ms E/A Ratio 1.1 MVA (PHT) 3.93 cm2 MV SZex269.6 cm/s TDI Medial E' P. V 5.96 cm/s E/Medial E' 14.8 Tricuspid Valve TR P. Velocity 278 cm/s RAP ESTIMATE 10 mmHg TR Peak Gr. 31 mmHg RVSP 41 mmHg Pulmonary Vein S1 Velocity 45.7 cm/s D2 Velocity 39.2 cm/s PVa [id number] cm/s PVa [id number] msec LEFT VENTRICLE Normal LV size and function. Mild concentric hypertrophy. LVEF is 55%. RIGHT VENTRICLE RV is normal size and function. RVSP is estimated at 41 mmHG. ATRIA Left atrium is mildly dilated. AORTIC VALVE Trileaflet AV appears sclerotic without stenosis. No insufficiency. MITRAL VALVE MV is thickened with mild annular calcification and no stenosis. Trace mitral regurgitation. TRICUSPID VALVE The tricuspid valve is normal in structure. Trace tricuspid regurgitation. PULMONIC VALVE The pulmonary valve is normal in structure. Trace pulmonic regurgitation. GREAT VESSELS The aortic root is normal in size. The ascending aorta is normal in size. The IVC is normal in size a nd collapses >50% with inspiration. PERICARDIUM Small posterior pericardial effusion with no evidence of hemodynamic compromise. Pleural effusion Other Information Study Quality: Adequate Conclusion Normal LV size and function. Mild concentric hypertrophy. LVEF is 55%. RV is normal size and function. RVSP is estimated at 41 mmHG. Left atrium is mildly dilated. Trileaflet AV appears sclerotic without stenosis. No insufficiency. MV is thickened with mild annular calcification and no stenosis. Trace mitral regurgitation. The tricuspid valve is normal in structure. Trace tricuspid regurgitation. The pulmonary valve is normal in structure. Trace pulmonic regurgitation. Small posterior pericardial effusion with no evidence of hemodynamic compromise.
[2025-06-06 19:37] LABS: MEAN PLATELET VOLUME 9.5 FL (7.4-10.4); RED CELL DISTRIBUTION WIDTH 20.2 % (11.5-14.5)
[2025-06-06 19:44] LABS: CREATININE 2.09 MG/DL (0.40-0.90); ETHANOL < 10 MG/DL (<10); TOTAL CARBON DIOXIDE 30.2 MMOL/L (24-32); eCRCL 17 ML/MIN; eGFR 24 ML/MIN
--- NOTE | 2025-06-06 19:46 | CONSULTATION REPORT ---
Consult Providers to CC ~ History of Present Illness Reason for Admit\\Complaint: Hypertensive emergency with acute metabolic encephalopathy History of Present Illness Patient is intubated unable to get any history most of the history is obtained from patient's chart and nursing staff taking care of the patient. As per record " 64-year-old [place]yr[place]z-speaking woman(poor historian-non verbal) brought in by paramedics from dialysis center because of altered mental status that was sudden 40 minutes into dialysis. Patient's last known well time was approximately 3:00 p.m.. Patient's pulse ox was on the low 90s on room air. Patient was noted to have audible gurgling and rhonchi. Patient was placed on 2 L nasal cannula and pulse ox is 96-98%. Patient's extremities are flaccid and patient's eyes are open. Patient does not follow commands. Patient is nonverbal. She is unable to protect the airway and hearing the gurgling sounds ." Patient was intubated and transferred to CICU. Later on her blood pressure dropped too low to the point that she was started on norepinephrine. Allergies: Coded Allergies: No Known Allergies (Unverified , 10/18/19) Home Medications Home Medications Active Reported Miralax* (Polyethylene Glycol) 1 Packet Packet 1 Pkt PO DAILY dissolve in water Clementina-Isidoro Tablet (Folic Acid/Vitamin B Comp W-C) 0.8 Mg Tablet 1 Tab PO DAILY Norvasc* (Amlodipine Besylate) 2.5 Mg Tablet 2 Tab PO DAILY Docusate Sodium 100 Mg Capsule 1 Cap PO Q12H Carvedilol 12.5 Mg Tablet 1 Tab PO Q12H Tramadol HCl 50 Mg Tablet 2 Tab PO DAILY PRN USE EVERY MON, WED, FRI PRIOR TO DIALYSIS Past Medical History Past Medical History HTN , Depression ESRD on HD Past Surgical History Surgical History Comment Av fistula right arm dialysis catheter right chest Past Social History Social History Comment non smoker, non etoh abuser, no drug abuser. ROS ROS Unable to obtain patient is intubated Exam Vitals: Vital Signs Date Time Temp Pulse Resp B/P (MAP) Pulse Ox O2 Delivery O2 Flow Rate FiO2 06/06/25 19:17 50 22 100 35 06/06/25 18:02 131/45 (73) Mechanical Ventilator 06/06/25 17:00 98.2 06/05/25 18:35 0 General: General-patient is chronically ill-appearing, lethargic in intubated HEENT-atraumatic normocephalic, neck supple without elevated JVD, Eyes-no icterus or pallor seen in eyes Chest-decreased breath sounds to auscultation bilaterally, patient is intubated Heart-S1-S2 normal, regular heart rate no murmur Abdomen bowel sounds positive on auscultation, soft nondistended nontender no guarding, no rigidity Neurology-lethargic unable to follow any verbal commands Extremity- trace pedal edema , not able to move all 4 extremities Diagnostic Data Last Recorded Lab Results: 06/06/25 0300 06/06/25 0300 Diagnostic Data: Laboratory Tests Test 06/05/25 16:27 Prothrombin Time 13.1 SECONDS (9.0-12.0) H INR International Normalized Ratio 1.3 INR Activated Partial Thromboplast Time 35 SECONDS (22-32) H Coagulation Comments Additional Plan Acute hypoxemic respiratory failure Hypertensive emergency with Acute pulmonary edema Multifocal bilateral pneumonia, aspiration pneumonia Acute metabolic encephalopathy Bilateral internal carotid artery disease without significant stenosis JAYNE on chronic kidney disease Hyponatremia Hypokalemia Hypochloremia Hematological: Normocytic hypochromic anemia Thrombocytopenia Further management of patient's current condition as per industrial equipment wirer , Nephrology specialist and Neurology specialist recommendations. Patient's all labs and diagnostic workup and care plan reviewed. Sepsis Screening Skin Color: Normal Date of Service: Jun 06, 2025 Billing Provider: MERLY SEWELL MD Common Visit Codes: [id number] INP/OBS CARE(MOD) MERLY SEWELL MD Jun 06, 2025 19:46
[2025-06-06 19:57] LABS: PLATELET ESTIMATE DECREASED
[2025-06-06 19:59] LABS: LARGE PLATELETS FEW
[2025-06-06 20:03] LABS: BANDS% (MANUAL) 36 % (0-10); LYMPHOCYTES % (MANUAL) 6 % (21-51); MONOCYTES % (MANUAL) 2 % (2-12); NEUTROPHILS % (MANUAL) 56 % (42-75)
[2025-06-06] MEDS: K and/or MAG REPLACEMENT MC SCH (20:11)
[2025-06-06] MEDS: Duosol 4K/3 Ca (w/calcium) 5,000 ML HE SCH (20:12)
[2025-06-06 20:13] LABS: PHOSPHORUS 0.9 MG/DL (2.3-4.5)
[2025-06-06 20:15] LABS: PRO BRAIN NATRIURETIC PEPTIDE > 30000 PG/ML (0-125)
[2025-06-06] MEDS: sodium phosphate inj. 30 MMOL in dextrose 5%-water 250 ML IV PRN (21:07)
[2025-06-07] VITALS (33 sets, daily range): BP systolic 119–181; BP diastolic 39–58; PULSE 48–69; RESP 14–26; TEMP 97.8; O2SAT 94–100
[2025-06-07 01:22] LABS: MEAN PLATELET VOLUME 8.6 FL (7.4-10.4); RED CELL DISTRIBUTION WIDTH 20.4 % (11.5-14.5)
[2025-06-07 01:36] LABS: CREATININE 1.69 MG/DL (0.40-0.90); TOTAL CARBON DIOXIDE 29.1 MMOL/L (24-32); eCRCL 22 ML/MIN; eGFR 30 ML/MIN
[2025-06-07 01:38] LABS: PHOSPHORUS 2.5 MG/DL (2.3-4.5)
--- NOTE | 2025-06-07 06:04 | RADIOLOGY REPORT ---
CHEST RADIOGRAPH Indication: vented Technique: Single frontal view of the chest was obtained COMPARISON: DI CHEST,SINGLE VIEW on DOS: 06/06/25, DI CHEST,SINGLE VIEW on DOS: 06/05/25, DI CHEST,SING LE VIEW on DOS: 06/05/25, DI CHEST,SINGLE VIEW on DOS: 06/05/25 FINDINGS: Lines and Tubes: Unchanged. Lungs: Slight interval improvement in multifocal bilateral pulmonary airspace disease. Small bilater al pleural effusions are unchanged. No pneumothorax. Cardiomediastinal contours: Unremarkable Bones: Unremarkable IMPRESSION: 1. Slight interval improvement in multifocal bilateral pulmonary airspace disease. 2. Stable small bilateral pleural effusions. 3. Lines and tubes unchanged.
[2025-06-07] MEDS: vancomycin/NS 1 GM ADD-VANTAGE 250 ML IV SCH (07:14)
[2025-06-07 07:34] LABS: CREATININE 1.46 MG/DL (0.40-0.90); TOTAL CARBON DIOXIDE 28.7 MMOL/L (24-32); eCRCL 25 ML/MIN; eGFR 36 ML/MIN
[2025-06-07 07:44] LABS: PHOSPHORUS 2.4 MG/DL (2.3-4.5)
[2025-06-07] MEDS: acetaminophen 325mg/10.15ml oral unit dose solution OGT PRN (09:05)
--- NOTE | 2025-06-07 09:24 | PROGRESS NOTE- Residence ---
Progress Note - Resident Providers to CC Resident Creating Document: RUTHY GUTHRIE, LIVIA ~ Central Line/PICC still needed: No Cardona-Non Protocol Cardona Indications Met/Not Met: F/C Indications Not Met Antibiotic Timeout Antibiotic Ordered?: Yes Subjective Patient is more awake; possible plan to extubate today and discharge home with hospice care planned. Objective Vital Signs Date Time Temp Pulse Resp B/P (MAP) Pulse Ox O2 Delivery O2 Flow Rate FiO2 06/07/25 09:00 25 35 06/07/25 08:02 63 100 06/07/25 08:00 96.1 143/45 (77) Mechanical Ventilator 06/05/25 18:35 0 Result Diagram: 06/07/25 0109 06/07/25 0702 General: Intubated, iritatble Resp: Unlabored. B/L crepts heard Heart: Regular Rate and rhythm, normal S1 and S2 without murmur, rub or gallop. Abdomen: Soft and non tender no organomegaly Extremities: No cyanosis,clubbing or edema. Skin: Warm and Dry. Coagulation Studies Laboratory Tests Test 06/05/25 16:27 Prothrombin Time 13.1 SECONDS (9.0-12.0) H INR International Normalized Ratio 1.3 INR Activated Partial Thromboplast Time 35 SECONDS (22-32) H Coagulation Comments Assessment Assessment This is a 64-year-old female patient with a past medical history of ESRD on dialysis was transferred to the hospital from the dialysis center after she collapsed within 40 minutes of starting her dialysis. Due to the inability to maintain her airway, she was intubated in the ER. She came in with significant flaccidity and a chest x-ray revealing fluid overload. Blood pressure was also borderline, requiring increasing doses of norepinephrine. We aim to resume her hemodialysis in the hospital, but her blood pressure was too low to tolerate dialysis and hence, she was placed on CRRT. She is more responsive today on 06/07/2025, plan is to extubate the patient. ICU team is also talking to family , who are considering taking the patient home with hospice care. Plan Plan ESRD Dialysis at [facility] Unknown regular scheduled dates Creatinine today 2.7, with hypokalemia and normal other electrolytes Currently on CRRT Discontinue based on goals of care discussions Acute hypoxemic respiratory failure: Improving Flash pulmonary edema versus aspiration pneumonia Intubated and mechanically ventilated; minimal oxygen requirements. Plan for extubation today Improving opacities on chest x-ray today Currently being managed empirically with antibiotics including vanc and Zosyn. Recommend using the antibiotics with dialysis CRRT to help pulmonary edema Acute metabolic encephalopathy: MRI reveals- Diffuse white matter abnormality be related to chronic microvascular ischemic disease or metabolic disorder. Left mastoid effusion. Mentation improving CRRT Tele neurology recommends Keppra and aspirin Lines: Central line, PIV, dialysis catheter Code status: Full code Ruthy Guthrie PGY3, Internal medicine resident Date of Service: Jun 07, 2025 Billing Provider: ODIN RILEY III, DEEPANJALI, RES Jun 07, 2025 09:24
[2025-06-07 13:08] LABS: CREATININE 1.34 MG/DL (0.40-0.90); TOTAL CARBON DIOXIDE 30.9 MMOL/L (24-32); eCRCL 27 ML/MIN; eGFR 40 ML/MIN
[2025-06-07 13:15] LABS: PHOSPHORUS 1.7 MG/DL (2.3-4.5)
--- NOTE | 2025-06-07 17:20 | PROGRESS NOTE ---
Daily Progress Note Providers to CC ~ Antibiotic Timeout Antibiotic Ordered?: Yes Subjective The patient was extubated this morning- the patient has decided to stop dialysis in the family will be taking the patient home tomorrow on hospice care. Objective Vital Signs Date Time Temp Pulse Resp B/P (MAP) Pulse Ox O2 Delivery O2 Flow Rate FiO2 06/07/25 16:00 65 14 139/49 (79) 98 Room Air 06/07/25 13:07 97.8 1.5 06/07/25 10:00 35 Result Diagram: 06/07/25 0109 06/07/25 1249 Gen. No acute distress alert and oriented, cachectic Lungs clear to ascultation bilaterally, no wheezes rales or rhonchi appreciated Heart normal sinus rhythm no murmurs rubs or clicks noted Abdomen soft nontender bowel sounds are normoactive Lower extremities no clubbing cyanosis, nor edema appreciated bilaterally Coagulation Studies Laboratory Tests Test 06/05/25 16:27 Prothrombin Time 13.1 SECONDS (9.0-12.0) H INR International Normalized Ratio 1.3 INR Activated Partial Thromboplast Time 35 SECONDS (22-32) H Coagulation Comments Problem\Assessment\Plan Problems/Diagnosis: (1) ESRD (end stage renal disease) Acute hypoxemic respiratory failure The patient was extubated today Hypertensive emergency with Acute pulmonary edema Resolved Multifocal bilateral pneumonia, aspiration pneumonia IV Zosyn and IV vancomycin Acute metabolic encephalopathy Resolved Bilateral internal carotid artery disease without significant stenosis JAYNE on chronic kidney disease 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 Sepsis Screening Skin Color: Normal Date of Service: Jun 07, 2025 Billing Provider: MARY DU DO Common Visit Codes: [id number] INP/OBS CARE(HIGH) MARY DU DO Jun 07, 2025 17:20
[2025-06-07] MEDS: hydrALAZINE 20mg/ml inj. IV PRN (18:16)
--- NOTE | 2025-06-07 19:08 | PROGRESS NOTE- Residence ---
Progress Note - Resident Providers to CC Resident Creating Document: ASHELY HARRISON RES ~ Antibiotic Timeout Antibiotic Ordered?: Yes Subjective Seen and examined the patient at bedside. Responding to verbal commands. Daughter at the bedside in the evening. No exaggerated shortness of breath. Respiratory and renal function team seems to be improved with CRRT. Objective Vital Signs Date Time Temp Pulse Resp B/P (MAP) Pulse Ox O2 Delivery O2 Flow Rate FiO2 06/07/25 18:31 67 15 169/49 (89) 100 Room Air 06/07/25 13:07 97.8 1.5 06/07/25 10:00 35 Result Diagram: 06/07/25 0109 06/07/25 1249 General Appearance: Critically ill-appearing, in mild distress extubated HEENT: Normal OP, moist oral mucosa, no extraocular movements, gaze is forward, opacification of the left pupil, right pupil is 3-4 mm and fixed, decreased gag reflex Neck: supple, normal ROM, trachea midline Pulmonary: Moderate respiratory distress, tachypneic, breath sounds equal, decreased bilateral crepitations over infrascapular and interscapular and suprascapular areas improved a lot. Cardiac: RRR, no murmur, rub or gallop, Chest: Outwardly normal-appearing, dialysis catheter in the right chest GI: nondistended, soft, nontender, normal bowel sounds, no guarding, no rebound Extremities: normal ROM, no swelling, non-tender, av fistula in the right arm Skin: intact, dry, warm, no rashes Neuro: unresponsive, extremities are flaccid seems to feel pain but does not move extremities Coagulation Studies Laboratory Tests Test 06/05/25 16:27 Prothrombin Time 13.1 SECONDS (9.0-12.0) H INR International Normalized Ratio 1.3 INR Activated Partial Thromboplast Time 35 SECONDS (22-32) H Coagulation Comments Advance Care Planning Advanced Care planning: Add on additional 30 min Assessment Assessment This is a 64-year-old female patient with a past medical history of ESRD on dialysis was transferred to the hospital from the dialysis center after she collapsed within 40 minutes of starting her dialysis. Due to the inability to maintain her airway, she was intubated in the ER. She came in with significant flaccidity and a chest x-ray revealing fluid overload. Blood pressure was also borderline, requiring increasing doses of norepinephrine. We aim to resume her hemodialysis in the hospital, but her blood pressure was too low to tolerate dialysis and hence, she was placed on CRRT. She is more responsive today on 06/07/2025, plan is to extubate the patient. ICU team is also talking to family , who are considering taking the patient home with hospice care. Plan Plan Cardiorespiratory: Acute hypoxemic respiratory failure Hypertensive emergency with Acute pulmonary edema Multifocal bilateral pneumonia, aspiration pneumonia Blood pressures are elevated to is BP of 200s ABG is showing elevated pCO2, PO2 80.6, bicarbonate 32 On vanc pharmacy to dose and Zosyn 3.375 q.12h to cover multifocal bacterial pneumonia Gram-positive, Gram-negative, anaerobic considering her multiple hemodialysis cycles with [facility] She was not able to protect airway and we intubated for tracheobronchial toilet and currently on FiO2 of 50 Sedated with fentanyl and propofol which could help with lowering the blood pressure Started on nicardipine drip 06/06/2025 Blood pressure is soft in the morning. Discontinue nicardipine, ceftriaxone and we are doing low dose of fentanyl and propofol sedation in view of soft blood pressure. We will continue vanc and Zosyn. Serum lactic acid is normal and procalcitonin is 13.76, elevated. Ordered troponin, proBNP, sputum gram staining & culture is ordered. 06/07/2025 Extubated today. She is doing fine with oxygen saturation of 100% at room air. We will continue vanc and Zosyn. Pulmonary edema seems to be resolved with mechanical ventilation and CRRT. Acute metabolic encephalopathy Bilateral internal carotid artery disease without significant stenosis Intubated and sedated with fentanyl and propofol and on mechanical ventilation It could be secondary to hypertensive emergency with bilateral aspiration pneumonia Discontinued nicardipine drip, On vanc and Zosyn based on EGFR Ordered EEG, MRI brain, ethanol, TSH, ammonia, drug screen per neurologist consultation we will follow up with the results. Started on aspirin per tele neurologist consultation On 06/07/2025: Her mentation is improving today. Responding to verbal commands. Her daughter at the bedside and discussed end of life goals but there does not want hospice care but okay with DNR code status Renal: JAYNE on chronic kidney disease Hyponatremia, resolving Hypokalemia , resolved Hypochloremia, resolved Hypocalcemia Serum creatinine is 2.34 Baseline creatinine on 10/18/2019 is 5.02 and 3.22 on 10/19/2019 We will continue to monitor CMP We will consult packager machine in a.m. for possible hemodialysis 06/06/[address] Miranda. He is on board. On CVVH to remove fluid overload. Serum creatinine is 2.78, with EGFR of 17, potassium is 2.7 replacing per potassium replacement protocol Getting the Retacrit 5000 international units because hemoglobin is less than 10 06/07/2025 Even though, code status was changed to DNR but patient by herself in the presence of her daughter and nurse is okay continue dialysis. Her renal functions are improving and we will contact the packager machine team further recommendations. Hematological: Normocytic hypochromic anemia Thrombocytopenia Hemoglobin and hematocrit and the thrombocytosis on lower side it could be secondary to underlying chronic kidney disease Continue to monitor H and H and we will transfuse if less than 7 06/06/2025: Held heparin in view of platelet count 68. 06/07/2025: Held the heparin in view of thrombosis sites of 40. Hemoglobin and hematocrit is 8.6 and 27.9 Severe Protein malnutrition hypoalbuminemia On tube feeding at the rate of 45 mL/hour Code status: DNR Diet: NPO DVT prophylaxis:scd Lines and tubes: Peripheral lines/right internal jugular vein central line/intubation and on mechanical ventilation Prognosis: Guarded Ashely Harrison ICU resident, PGY 2 Disposition: Currently on DNR code status/patient wants to get the hemodialysis. Patient's case discussed during morning rounds, morning report and during multidisciplinary rounds. I agree with the above assessment and plan. Patient's case discussed during morning rounds, morning report and during multidisciplinary rounds. I agree with the above assessment and plan. Date of Service: Jun 07, 2025 Billing Provider: ALEXSANDRA KEARNS MD, VENKATESH, RES Jun 07, 2025 19:08 ALEXSANDRA KEARNS MD Jun 08, 2025 09:30
[2025-06-08] VITALS (27 sets, daily range): BP systolic 133–176; BP diastolic 37–74; PULSE 62–77; RESP 14–26; TEMP 97.4–97.8; O2SAT 83–100
[2025-06-08 01:16] LABS: CREATININE 1.06 MG/DL (0.40-0.90); TOTAL CARBON DIOXIDE 29.7 MMOL/L (24-32); eCRCL 34 ML/MIN; eGFR 52 ML/MIN
[2025-06-08 01:22] LABS: PHOSPHORUS 3.7 MG/DL (2.3-4.5)
[2025-06-08 01:27] LABS: MEAN PLATELET VOLUME 8.5 FL (7.4-10.4); RED CELL DISTRIBUTION WIDTH 20.3 % (11.5-14.5)
[2025-06-08 08:11] LABS: HBSAG SCREEN Negative (Negative)
[2025-06-08 08:50] LABS: CREATININE 0.90 MG/DL (0.40-0.90); TOTAL CARBON DIOXIDE 28.1 MMOL/L (24-32); eCRCL 39 ML/MIN; eGFR 63 ML/MIN
[2025-06-08 08:52] LABS: PHOSPHORUS 2.7 MG/DL (2.3-4.5)
[2025-06-08 09:02] LABS: MEAN PLATELET VOLUME 8.6 FL (7.4-10.4); RED CELL DISTRIBUTION WIDTH 20.0 % (11.5-14.5)
--- NOTE | 2025-06-08 09:37 | PROGRESS NOTE ---
Subjective Subjective Seen and examined the patient at bedside. Responding to verbal commands. Daughter at the bedside in the evening. No exaggerated shortness of breath. Respiratory and renal function team seems to be improved with CRRT. Reason for visit: Pulmonary critical care follow-up. Reviewed: Care Plan, H&P, Labs, Medications, Radiology Review of Systems Changes from previous H/P or p: No Changes Daily Progress Note Exam Vitals Vital Signs Date Time Temp Pulse Resp B/P (MAP) Pulse Ox O2 Delivery O2 Flow Rate FiO2 06/08/25 06:00 66 20 145/37 (73) 96 Room Air 06/08/25 02:00 96.8 06/07/25 21:02 0 21 Result Diagram: 06/08/25 0850 06/08/25 0830 Results Coagulation Studies Laboratory Tests Test 06/05/25 16:27 Prothrombin Time 13.1 SECONDS (9.0-12.0) H INR International Normalized Ratio 1.3 INR Activated Partial Thromboplast Time 35 SECONDS (22-32) H Coagulation Comments VTE VTE Risk Score VTE Risk Score Reference Ranges: Score 0-1 = Low Risk (Aggressive mobilization; early ambulation; no VTE prophylaxis required) Score 2: Moderate Risk (Intermittent/Pneumatic Compression Device OR Lovenox/Heparin/Coumadin) Score 3-4: High Risk (Intermittent/Pneumatic Compression Device AND Lovenox/Heparin/Coumadin) Score > or = 5: Highest Risk (Intermittent/Pneumatic Compression Device AND Lovenox/Heparin/Coumadin) Assessment/Plan Assessment Acute hypoxemic respiratory failure : Thought to be due to cardiogenic pulmonary edema and/or pneumonia. Hypertensive emergency with Acute pulmonary edema and encephalopathy. Septic shock: Caused by multifocal bilateral pneumonia, aspiration pneumonia. Bilateral internal carotid artery disease without significant stenosis JAYNE on chronic kidney disease : Now on CRRT. Blood pressure has recovered inpatient should be able to be treated with intermittent hemodialysis to facilitate transfer out of the ICU. Hyponatremia: Resolved Hypokalemia : resolved Hypochloremia: resolved Hypocalcemia: Calcium normal when adjusted for albumin levels. Hematological: Normocytic hypochromic anemia Thrombocytopenia: Secondary to sepsis. Avoid heparin products. Severe Protein malnutrition Hypoalbuminemia On tube feeding at the rate of 45 mL/hour Code status: DNR Diet: Okay for oral intake but with poor p.o. intake DVT prophylaxis:scd Lines and tubes: Peripheral lines/right internal jugular vein central line/intubation and on mechanical ventilation Prognosis: Guarded Plan Cardiorespiratory: Acute hypoxemic respiratory failure Hypertensive emergency with Acute pulmonary edema Multifocal bilateral pneumonia, aspiration pneumonia Blood pressures are elevated to is BP of 200s ABG is showing elevated pCO2, PO2 80.6, bicarbonate 32 On vanc pharmacy to dose and Zosyn 3.375 q.12h to cover multifocal bacterial pneumonia Gram-positive, Gram-negative, anaerobic considering her multiple hemodialysis cycles with [facility] She was not able to protect airway and we intubated for tracheobronchial toilet and currently on FiO2 of 50 Sedated with fentanyl and propofol which could help with lowering the blood pressure Started on nicardipine drip 06/06/2025 Blood pressure is soft in the morning. Discontinue nicardipine, ceftriaxone and we are doing low dose of fentanyl and propofol sedation in view of soft blood pressure. We will continue vanc and Zosyn. Serum lactic acid is normal and procalcitonin is 13.76, elevated. Ordered troponin, proBNP, sputum gram staining & culture is ordered. 06/07/2025 Extubated today. She is doing fine with oxygen saturation of 100% at room air. We will continue vanc and Zosyn. Pulmonary edema seems to be resolved with mechanical ventilation and CRRT. Acute metabolic encephalopathy Bilateral internal carotid artery disease without significant stenosis Intubated and sedated with fentanyl and propofol and on mechanical ventilation It could be secondary to hypertensive emergency with bilateral aspiration pneumonia Discontinued nicardipine drip, On vanc and Zosyn based on EGFR Ordered EEG, MRI brain, ethanol, TSH, ammonia, drug screen per neurologist consultation we will follow up with the results. Started on aspirin per tele neurologist consultation On 06/07/2025: Her mentation is improving today. Responding to verbal commands. Her daughter at the bedside and discussed end of life goals but there does not want hospice care but okay with DNR code status Renal: JAYNE on chronic kidney disease Hyponatremia, resolving Hypokalemia , resolved Hypochloremia, resolved Hypocalcemia Serum creatinine is 2.34 Baseline creatinine on 10/18/2019 is 5.02 and 3.22 on 10/19/2019 We will continue to monitor CMP We will consult knitting machine operator automatic in a.m. for possible hemodialysis 06/06/[address] Miranda. He is on board. On CVVH to remove fluid overload. Serum creatinine is 2.78, with EGFR of 17, potassium is 2.7 replacing per potassium replacement protocol Getting the Retacrit 5000 international units because hemoglobin is less than 10 06/07/2025 Even though, code status was changed to DNR but patient by herself in the presence of her daughter and nurse is okay continue dialysis. Her renal functions are improving and we will contact the knitting machine operator automatic team further recommendations. Hematological: Normocytic hypochromic anemia Thrombocytopenia Hemoglobin and hematocrit and the thrombocytosis on lower side it could be secondary to underlying chronic kidney disease Continue to monitor H and H and we will transfuse if less than 7 06/06/2025: Held heparin in view of platelet count 68. 06/07/2025: Held the heparin in view of thrombosis sites of 40. Hemoglobin and hematocrit is 8.6 and 27.9 Severe Protein malnutrition hypoalbuminemia On tube feeding at the rate of 45 mL/hour Code status: DNR Diet: NPO DVT prophylaxis:scd Lines and tubes: Peripheral lines/right internal jugular vein central line/intubation and on mechanical ventilation Prognosis: Guarded [facility] ICU resident, PGY 2 Disposition: Currently on DNR code status/patient wants to get the hemodialysis. Patient's case discussed during morning rounds, morning report and during multidisciplinary rounds. I agree with the above assessment and plan. Patient's case discussed during morning rounds, morning report and during multidisciplinary rounds. I agree with the above assessment and plan. Expected Outcome/Goals Expected Outcomes/Goals: no wt loss/ wt holiness, TF tolerance, bowel regularity, wound healing, BG 140-180 mg/dl ALEXSANDRA KEARNS MD Jun 08, 2025 09:37
[2025-06-08] MEDS: EPOETIN ALFA-EPBX 20,000 UNIT/ML 1 ML MDV IV ONE (12:53)
[2025-06-08] MEDS: heparin 1,000 units/ml 10ml inj HE ONE ×2 (12:56)
[2025-06-08] MEDS ORDERED: dextrose 50%-water 50ml dispensing syringe IV PRN (14:55)
[2025-06-08] MEDS: dextrose 50%-water 50ml dispensing syringe IV PRN (15:14)
--- NOTE | 2025-06-08 22:37 | PROGRESS NOTE ---
Daily Progress Note Providers to CC ~ Antibiotic Timeout Antibiotic Ordered?: Yes Subjective The patient's daughter has a elected to continue dialysis. At this juncture they are not interested in end of life/ hospice care. The patient is transferred out of ICU to PCU today Objective Vital Signs Date Time Temp Pulse Resp B/P (MAP) Pulse Ox O2 Delivery O2 Flow Rate FiO2 06/08/25 22:14 72 06/08/25 19:24 16 98 Nasal Cannula* 2 28 06/08/25 16:30 97.6 155/63 (93) Result Diagram: 06/08/25 0850 06/08/25 0830 Gen. No acute distress alert and oriented, cachectic Lungs clear to ascultation bilaterally, no wheezes rales or rhonchi appreciated Heart normal sinus rhythm no murmurs rubs or clicks noted Abdomen soft nontender bowel sounds are normoactive Lower extremities no clubbing cyanosis, nor edema appreciated bilaterally Coagulation Studies Laboratory Tests Test 06/05/25 16:27 Prothrombin Time 13.1 SECONDS (9.0-12.0) H INR International Normalized Ratio 1.3 INR Activated Partial Thromboplast Time 35 SECONDS (22-32) H Coagulation Comments Problem\Assessment\Plan Problems/Diagnosis: (1) ESRD (end stage renal disease) Acute hypoxemic respiratory failure The patient was extubated today Oxygen saturation is in the high 90s on 2 L Hypertensive emergency with Acute pulmonary edema Resolved Multifocal bilateral pneumonia, aspiration pneumonia IV Zosyn and IV vancomycin Acute metabolic encephalopathy Resolved Bilateral internal carotid artery disease without significant stenosis JAYNE on chronic kidney disease 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 which will be discontinued today 06/08/2025 The patient is a restart prior dialysis scheduled Hyponatremia Hypokalemia Hypochloremia Resolved Continue to monitor Normocytic hypochromic anemia Thrombocytopenia Platelet [place] to [place] [address] Hemoglobin slightly downtrended to 7.7 today Continue to monitor and transfuse if hemoglobin drops below seven or platelets drop [place] [address] or any signs of bleeding Disposition: Home with home health once medically stable Sepsis Screening Skin Color: Normal Date of Service: Jun 08, 2025 Billing Provider: MARY DU DO Common Visit Codes: [id number] INP/OBS CARE(HIGH) MARY DU DO Jun 08, 2025 22:37
[2025-06-09] VITALS (12 sets, daily range): BP systolic 137–168; BP diastolic 53–75; PULSE 69–82; RESP 15–22; TEMP 96–97.9; O2SAT 90–100
[2025-06-09 04:30] LABS: MEAN PLATELET VOLUME 8.4 FL (7.4-10.4); RED CELL DISTRIBUTION WIDTH 20.2 % (11.5-14.5)
[2025-06-09 04:42] LABS: CREATININE 1.20 MG/DL (0.40-0.90); TOTAL CARBON DIOXIDE 25.4 MMOL/L (24-32); eCRCL 29 ML/MIN; eGFR 45 ML/MIN
--- NOTE | 2025-06-09 17:03 | PROGRESS NOTE ---
Progress Note Dictate Providers to CC ~ Central Line/PICC still needed: Yes Central Line/PICC Necessity: Req HD/Plasmapheresis Cardona Indications Met/Not Met: F/C Indications Not Met Antibiotic Ordered?: N/A Subjective Subjective This unfortunte 64 year old woman, went briefly on comfort care with the excellent efforts by with the family, which was short lived, as they wanted dialysis to continue for her. I see her first time this admission, but I did send her from [facility] on dayy 1, when I rounded on her, having active change in mental status a few days ago. Overall, she has been declining to almost invisible in the past few months. Extremely cachectic and it will be humane and compassionate to stop the dialysis and allow her to be comfortable. will try to talk to family yet again tomorrow. Meanwhile, she was dialyzed today, sadly. Objective Vitals Vital Signs Date Time Temp Pulse Resp B/P (MAP) Pulse Ox O2 Delivery O2 Flow Rate FiO2 06/10/25 16:31 68 17 94 Nasal Cannula* 2 28 06/10/25 13:50 143/64 (90) 06/10/25 11:00 97.8 Lab Results: 06/10/25 0430 06/10/25 0430 Objective extremely thin and emaciated she is altered and does not make much sense CVS: S1S2+]rS: cTa Abd: BS+ ext: No edema Coagulation Studies Laboratory Tests Test 06/05/25 16:27 Prothrombin Time 13.1 SECONDS (9.0-12.0) H INR International Normalized Ratio 1.3 INR Activated Partial Thromboplast Time 35 SECONDS (22-32) H Coagulation Comments Advance Care Planning Advanced Care plannin - 30 Minutes Problem\Assessment\Plan Problems/Diagnosis: (1) ESRD (end stage renal disease) Assessment & Plan: HD in progress. sadly this is not ok for this poor lady and it would be very compassionate to let her be peaceful. We need to have proper [place] islander speaking person that can relate to the family. Sepsis Screening Skin Color: Normal SHIRLEY NUNEZ MD Jun 09, 2025 17:03
--- NOTE | 2025-06-09 18:16 | RADIOLOGY REPORT ---
Exam: DI ABDOMEN,SINGLE VIEW(KUB) Indication: confirm NG tube placement Comparison: None Technique: Single radiographic view of the abdomen. Findings: Visualized portions of the lung bases are clear. Dobbhoff catheter terminates within the gastric lumen. Nonobstructive bowel gas pattern noted. There is no definite evidence for pneumoperitoneum. No abnorm al calcifications noted. Nonobstructive bowel gas pattern noted. There is no definite evidence for pneumoperitoneum. No abnormal calcifications noted. Impression: 1. Nonobstructive bowel gas pattern noted. 2. Dobbhoff catheter noted.
--- NOTE | 2025-06-09 20:59 | PROGRESS NOTE ---
Daily Progress Note Providers to CC ~ Antibiotic Timeout Antibiotic Ordered?: Yes Subjective The patient lays in bed and does not speak but mumbles occasionally in his not eating we placed a Corpak feeding tube this evening and registered dietitian we will start tube feeds. Objective Vital Signs Date Time Temp Pulse Resp B/P (MAP) Pulse Ox O2 Delivery O2 Flow Rate FiO2 06/09/25 20:18 69 20 99 Nasal Cannula* 2 28 06/09/25 15:00 97.6 148/63 (91) Result Diagram: 06/09/25 0415 06/09/25 0415 Gen. No acute distress alert and oriented, cachectic Lungs clear to ascultation bilaterally, no wheezes rales or rhonchi appreciated Heart normal sinus rhythm no murmurs rubs or clicks noted Abdomen soft nontender bowel sounds are normoactive Lower extremities no clubbing cyanosis, nor edema appreciated bilaterally Coagulation Studies Laboratory Tests Test 06/05/25 16:27 Prothrombin Time 13.1 SECONDS (9.0-12.0) H INR International Normalized Ratio 1.3 INR Activated Partial Thromboplast Time 35 SECONDS (22-32) H Coagulation Comments Problem\Assessment\Plan Problems/Diagnosis: (1) ESRD (end stage renal disease) Acute hypoxemic respiratory failure The patient was extubated today Oxygen saturation is in the high 90s on 2 L Hypertensive emergency with Acute pulmonary edema Resolved Multifocal bilateral pneumonia, aspiration pneumonia IV Zosyn and IV vancomycin Acute metabolic encephalopathy Resolved The patient is minimally responsive Bilateral internal carotid artery disease without significant stenosis JAYNE on chronic kidney disease Currently on [employer] which will be discontinued today 06/08/2025 The patient is a restart prior dialysis scheduled Hyponatremia Hypokalemia Hypochloremia Resolved Continue to monitor Normocytic hypochromic anemia Thrombocytopenia Platelet count [place] to [place] [address] Hemoglobin slightly downtrended to 7.7 today Continue to monitor and transfuse if hemoglobin drops below seven or platelets drop [place] [address] or any signs of bleeding 06/09 [place] [address]- continue to monitor Nutrition The patient has very poor p.o. intake 06/09 a Corpak feeding tube was placed and registered dietitian started the patient on tube feedings Disposition: Home with home health once medically stable 06/09 the patient is barely responsive and not eating I think you would be quite reasonable to reconvene and meet with the patient's daughter along with case management and myself to try to sort this out as at this juncture my opinion the patient would be best served with hospice and end of life care however the daughter declined hospice care on 06/08 Sepsis Screening Skin Color: Normal Date of Service: Jun 09, 2025 Billing Provider: MARY DU DO Common Visit Codes: [id number] INP/OBS CARE(HIGH) MARY DU DO Jun 09, 2025 20:59
--- NOTE | 2025-06-09 23:40 | RADIOLOGY REPORT ---
Exam: DI ABDOMEN,SINGLE VIEW(KUB) Indication: Nasogastric Comparison: DI ABDOMEN,SINGLE VIEW(KUB) on DOS: 06/09/25 Technique: 3 radiographic views of the abdomen. Findings: The visualized portions of the lung bases are clear. Enteric catheter terminates within the left upper quadrant, presumably within the gastric lumen. Nonobstructive bowel gas pattern noted. There is no definite evidence for pneumoperitoneum. No abnorm al calcifications noted. Nonobstructive bowel gas pattern noted. There is no definite evidence for pneumoperitoneum. No abnormal calcifications noted. Impression: 1. Nonobstructive bowel gas pattern noted. 2. Enteric catheter as above.
[2025-06-10] VITALS (17 sets, daily range): BP systolic 99–183; BP diastolic 46–77; PULSE 68–76; RESP 17–23; TEMP 97–98; O2SAT 94–100
[2025-06-10] MEDS ORDERED: VANCOMYCIN LEVEL IV ONE (06:30)
[2025-06-10 06:39] LABS: MEAN PLATELET VOLUME 9.5 FL (7.4-10.4); RED CELL DISTRIBUTION WIDTH 20.4 % (11.5-14.5)
--- NOTE | 2025-06-10 06:40 | RADIOLOGY REPORT ---
Exam: DI ABDOMEN,SINGLE VIEW(KUB) Indication: nasogastric tube confirmation Comparison: DI ABDOMEN,SINGLE VIEW(KUB) on DOS: 06/09/25, DI ABDOMEN,SINGLE VIEW(KUB) on DOS: 06/09/25 Technique: Single radiographic view of the abdomen. Findings: Nasogastric tube remains positioned within the gastric lumen. Small bilateral pleural effusions and multifocal bilateral middle and lower lung zone pulmonary airsp daryn disease. Nonobstructive bowel gas pattern noted. There is no definite evidence for pneumoperitoneum. No abnormal calcifications noted. Impression: 1. Nasogastric tube positioned within the left upper quadrant, presumably within the gastric lumen. 2. Nonobstructive bowel gas pattern. 3. Small bilateral pleural effusions and multifocal bilateral middle and lower lung zone pulmonary ai rspace disease.
[2025-06-10 06:51] LABS: CREATININE 1.87 MG/DL (0.40-0.90); TOTAL CARBON DIOXIDE 22.5 MMOL/L (24-32); eCRCL 19 ML/MIN; eGFR 27 ML/MIN
[2025-06-10] MEDS ORDERED: vancomycin/NS 1 GM ADD-VANTAGE 250 ML IV PRN (09:00)
[2025-06-10] MEDS ORDERED: albumin (human) 25% 100ml IV 100 ML IV PRN (09:50)
[2025-06-10] MEDS: EPOETIN ALFA-EPBX 20,000 UNIT/ML 1 ML MDV IV ONE (11:02)
[2025-06-10] MEDS: heparin 1,000 units/ml 10ml inj HE ONE ×2 (12:25)
[2025-06-10 13:34] LABS: PHOSPHORUS 3.8 MG/DL (2.3-4.5)
--- NOTE | 2025-06-10 14:11 | RADIOLOGY REPORT ---
CHEST RADIOGRAPH Indication: Respiratory distress Technique: Single frontal view of the chest was obtained Comparison: DI CHEST,SINGLE VIEW on DOS: 06/07/25, DI CHEST,SINGLE VIEW on DOS: 06/06/25, DI CHEST,SING LE VIEW on DOS: 06/05/25, DI CHEST,SINGLE VIEW on DOS: 06/05/25, DI CHEST,SINGLE VIEW on DOS: 06/05/25, DI CHEST,SINGLE VIEW on DOS: 06/07/25 FINDINGS: Lines and Tubes: Interval removal of endotracheal tube and nasogastric tube. Lungs: Unchanged multifocal airspace opacities. Small bilateral pleural effusions are unchanged. No pneumothorax. Cardiomediastinal contours: Unremarkable Bones: Unremarkable IMPRESSION: Endotracheal tube and nasogastric tube removed. Unchanged multifocal airspace opacities.
--- NOTE | 2025-06-10 17:01 | PROGRESS NOTE- Residence ---
Progress Note - Resident Providers to CC Resident Creating Document: CARRIE BARKER RES CC: SHIRLEY NUNEZ MD ~ Antibiotic Timeout Antibiotic Ordered?: Yes Subjective Patient was seen and examined at the bedside while she was undergoing her dialysis today. Objective Vital Signs Date Time Temp Pulse Resp B/P (MAP) Pulse Ox O2 Delivery O2 Flow Rate FiO2 06/10/25 16:31 68 17 94 Nasal Cannula* 2 28 06/10/25 13:50 143/64 (90) 06/10/25 11:00 97.8 General Appearance: Cachectic HEENT: Normal OP, moist oral mucosa, no extraocular movements, gaze is forward, opacification of the left pupil, right pupil is 3-4 mm and fixed, decreased gag reflex Neck: supple, normal ROM, trachea midline Pulmonary: Mild respiratory distress, bilateral air entry present Cardiac: RRR, no murmur, rub or gallop, Chest: Outwardly normal-appearing, dialysis catheter in the right chest GI: nondistended, soft, nontender, normal bowel sounds, no guarding, no rebound Extremities: normal ROM, no swelling, non-tender, av fistula in the right arm Skin: intact, dry, warm, no rashes Neuro: unresponsive, extremities are flaccid seems to feel pain but does not move extremities Result Diagram: 06/10/25 0430 06/10/25 0430 Coagulation Studies Laboratory Tests Test 06/05/25 16:27 Prothrombin Time 13.1 SECONDS (9.0-12.0) H INR International Normalized Ratio 1.3 INR Activated Partial Thromboplast Time 35 SECONDS (22-32) H Coagulation Comments Assessment Assessment Plan Plan Assessment: 64-year-old Togolese-speaking woman(poor historian-non verbal) brought in by paramedics from dialysis center because of altered mental status that was sudden 40 minutes into dialysis JAYNE on chronic kidney disease Dialysis schedule- MWF Hyponatremia, resolved Hypokalemia , resolved Hypochloremia, resolved Hypocalcemia -undergoing a dialysis session today 06/10/25 -patient's creatinine today is 1.87 before dialysis Acute hypoxemic respiratory failure Hypertensive emergency with Acute pulmonary edema Multifocal bilateral pneumonia, aspiration pneumonia -patient is currently on 2 L of oxygen saturating at 96% Normocytic hypochromic anemia Thrombocytopenia -Epotein jodie 15,000 unit one dose given today -continue to monitor platelets Severe Protein malnutrition Hypoalbuminemia -recommended nephro shakes Code status: DNR Diet: NPO DVT prophylaxis:SCDs Lines and tubes: Peripheral lines/right internal jugular vein central line Prognosis: Guarded Disposition-we will continue to monitor the patient. Carrie Barker Internal medicine resident,PGY-1 Date of Service: Jun 10, 2025 Billing Provider: SHIRLEY NUNEZ MD, JAHNAVI, LIVIA Jun 10, 2025 17:00
--- NOTE | 2025-06-10 17:18 | RADIOLOGY REPORT ---
KUB INDICATION: NG placement confirmation FINDINGS: NG tube tip is in the stomach. The bowel gas pattern is unremarkable. No abnormal masses or calcifications. IMPRESSION: 1. NG tube tip in the stomach.
--- NOTE | 2025-06-10 17:35 | CONSULTATION REPORT - RESIDENT ---
Consult Providers to CC Resident Creating Document: EUGENE ESPITIA RES History of Present Illness Reason for Admit\Complaint: AMS History of Present Illness This is a 64-year-old female with end-stage renal disease on dialysis, severe protein calorie malnutrition and hypotensive emergency with a respiratory failure, initially admitted to ICU for altered mental status and hypoxemic, requiring intubation mechanical ventilation. She was later extubated and shifted to PCU. MRI showed chronic microvascular ischemic changes and neurology recommended Keppra and aspirin. Patient has been minimally responsive with a very poor oral intake and currently on continuous tube feeds. She is still hemodynamically stable with a hemoglobin of 8.1, platelets stable at 29 K, creatinine 1.87 today. Coagulation profile is within acceptable range PT 13.1. GI was consulted to assist with placement of a PEG tube for long-term enteral nutrition. Allergies: Coded Allergies: No Known Allergies (Unverified , 10/18/19) Home Medications Home Medications Active Reported Miralax* (Polyethylene Glycol) 1 Packet Packet 1 Pkt PO DAILY dissolve in water Clementina-Isidoro Tablet (Folic Acid/Vitamin B Comp W-C) 0.8 Mg Tablet 1 Tab PO DAILY Norvasc* (Amlodipine Besylate) 2.5 Mg Tablet 2 Tab PO DAILY Docusate Sodium 100 Mg Capsule 1 Cap PO Q12H Carvedilol 12.5 Mg Tablet 1 Tab PO Q12H Tramadol HCl 50 Mg Tablet 2 Tab PO DAILY PRN USE EVERY MON, WED, FRI PRIOR TO DIALYSIS Past Medical History Past Medical History Patient was nonverbal and could not obtain her past medical history. As per past records: Hypertension, depression, ESRD, hyperlipidemia Past Social History Social History Comment Unable to be obtained ROS ROS Unable to be obtained Exam Vitals: Vital Signs Date Time Temp Pulse Resp B/P (MAP) Pulse Ox O2 Delivery O2 Flow Rate FiO2 06/10/25 16:31 68 17 94 Nasal Cannula* 2 28 06/10/25 13:50 143/64 (90) 06/10/25 11:00 97.8 General: Heavily calcific and nonverbal HEENT: Atraumatic, normocephalic, EOMI, anicteric sclera ; pink conjunctiva, left pupil hazy, right pupil and with a normal limits Neck: Trachea midline. Supple, full range of motion, no JVD Cardiac: Regular rhythm, regular rate with systolic murmurs all over the precordium. Respiratory: Diminished breath sounds bilaterally, right-sided dialysis port in place Gastrointestinal: No surgical scars noted, abdominal wall thin with no evidence of any scar tissues Musculoskeletal: No pedal edema Neurological: Could not be performed Skin: Warm and dry Diagnostic Data Last Recorded Lab Results: 06/10/25 0430 06/10/25 0430 Diagnostic Data: Laboratory Tests Test 06/05/25 16:27 Prothrombin Time 13.1 SECONDS (9.0-12.0) H INR International Normalized Ratio 1.3 INR Activated Partial Thromboplast Time 35 SECONDS (22-32) H Coagulation Comments Additional Plan Critically ill 64-year-old female with a ESRD, severe malnutrition and persistent poor oral intake requiring long-term enteral support. Patient is currently tolerating tube feeds but is not expected to regain adequate p.o. intake. Peg tube placement is indicated to facilitate nutritional goals at this point of time. Plan Proceed with PEG tube placement on 06/12 as scheduled Continue tube feeds via existing access until PEG tube is completed Monitor for platelet count, acceptable to procedure if remains stable Patient is currently not on any anticoagulation We will reassess tolerance and function of PEG tube post placement JAYNE on chronic kidney disease Dialysis schedule- MWF Continue management per nephrology Nutrition consulted for tube feeds Acute hypoxemic respiratory failure Hypertensive emergency with Acute pulmonary edema Multifocal bilateral pneumonia, aspiration pneumonia Normocytic hypochromic anemia Thrombocytopenia Severe Protein malnutrition Hypoalbuminemia Further management of comorbidities per primary team Code Status: DNR Eugene Espitia MD Internal Medicine Resident, PGY-2 Sepsis Screening Skin Color: Normal Date of Service: Jun 10, 2025 Billing Provider: FRANCISCO MORGAN MD, GAURAV, RES Jun 10, 2025 17:35
--- NOTE | 2025-06-10 21:02 | PROGRESS NOTE ---
Daily Progress Note Providers to CC ~ Antibiotic Timeout Antibiotic Ordered?: Yes Subjective The patient is is minimally responsive and is dyspneic however oxygen saturation is in the high 90s on 2 L oxygen. I spoke to the patient's daughter at length with Gloria our onsite case manager who informs me that the patient has been at this level of responsiveness for about a year and that she wants to continue dialysis as per her mother request on Tuesday we talked about tube feeds and she has a agreed for a PEG tube to be placed I did discuss this with Gastroenterology as well Objective Vital Signs Date Time Temp Pulse Resp B/P (MAP) Pulse Ox O2 Delivery O2 Flow Rate FiO2 06/10/25 19:40 69 17 99 Nasal Cannula* 2 28 06/10/25 13:50 143/64 (90) 06/10/25 11:00 97.8 Result Diagram: 06/10/25 04306/10/25 043 Gen. No acute distress alert and oriented, cachectic Lungs clear to ascultation bilaterally, no wheezes rales or rhonchi appreciated Heart normal sinus rhythm no murmurs rubs or clicks noted Abdomen soft nontender bowel sounds are normoactive Lower extremities no clubbing cyanosis, nor edema appreciated bilaterally Coagulation Studies Laboratory Tests Test 06/05/25 16:27 Prothrombin Time 13.1 SECONDS (9.0-12.0) H INR International Normalized Ratio 1.3 INR Activated Partial Thromboplast Time 35 SECONDS (22-32) H Coagulation Comments Problem\Assessment\Plan Problems/Diagnosis: (1) ESRD (end stage renal disease) Acute hypoxemic respiratory failure The patient was extubated today Oxygen saturation is in the high 90s on 2 L 06/10 chest x-ray today was unchanged Hypertensive emergency with Acute pulmonary edema Resolved Multifocal bilateral pneumonia, aspiration pneumonia IV Zosyn and IV vancomycin Acute metabolic encephalopathy Resolved The patient is minimally responsive 06/10 per patient's daughter this is the patient's steady state for approximally one year Bilateral internal carotid artery disease without significant stenosis JAYNE on chronic kidney disease Currently on [employer] which will be discontinued today 06/08/2025 The patient is a restart prior dialysis scheduled 06/10 received dialysis today in his followed by Nephrology Hyponatremia Hypokalemia Hypochloremia Resolved Continue to monitor Normocytic hypochromic anemia Thrombocytopenia Platelet [place] to [place] [address] Hemoglobin slightly downtrended to 7.7 today Continue to monitor and transfuse if hemoglobin drops below seven or [place] [address] or any signs of bleeding 06/09 [place] [address]- continue to monitor 06/11 [place] [address] today Nutrition The patient has very poor p.o. intake 06/09 a Corpak feeding tube was placed and registered dietitian started the patient on tube feedings 06/10 the patient has pulled out the Corpak tube a couple of times now- I discussed the case with criminal justice social worker Dr. Ortiz who has a agreed to place a PEG tube which is scheduled for the Disposition: Home with home health once medically stable 06/09 the patient is barely responsive and not eating I think you would be quite reasonable to reconvene and meet with the patient's daughter along with case management and myself to try to sort this out as at this juncture my opinion the patient would be best served with hospice and end of life care however the daughter declined hospice care on 06/08 06/10 anticipate discharge home with home health once PEG tube is placed and the patient is tolerating PEG tube feeds which the PEG tube will be placed by Gastroenterology on the Sepsis Screening Skin Color: Normal Date of Service: Jun 10, 2025 Billing Provider: MARY DU DO Common Visit Codes: [id number] INP/OBS CARE(HIGH) MARY DU DO Jun 10, 2025 21:02
[2025-06-11] VITALS (10 sets, daily range): BP systolic 139–175; BP diastolic 42–54; PULSE 52–69; RESP 16–25; O2SAT 84–100
[2025-06-11] MEDS: VANCOMYCIN LEVEL IV SCH (03:00)
[2025-06-11 04:00] LABS: MEAN PLATELET VOLUME 9.2 FL (7.4-10.4); RED CELL DISTRIBUTION WIDTH 20.4 % (11.5-14.5)
[2025-06-11 04:23] LABS: LARGE PLATELETS FEW; PLATELET ESTIMATE DECREASED
[2025-06-11 04:24] LABS: CREATININE 1.23 MG/DL (0.40-0.90); TOTAL CARBON DIOXIDE 27.1 MMOL/L (24-32); eCRCL 29 ML/MIN; eGFR 44 ML/MIN
[2025-06-11 04:26] LABS: PHOSPHORUS 2.4 MG/DL (2.3-4.5)
[2025-06-11] MEDS: potassium Cl 40MEQ/270ML bag 270 ML IV PRN (08:38)
--- NOTE | 2025-06-11 11:05 | RADIOLOGY REPORT ---
CHEST RADIOGRAPH Indication: LUNGS COARSE Technique: Single frontal view of the chest was obtained Comparison: DI CHEST,SINGLE VIEW on DOS: 06/10/25, DI CHEST,SINGLE VIEW on DOS: 06/07/25, DI CHEST,SING LE VIEW on DOS: 06/06/25, DI CHEST,SINGLE VIEW on DOS: 06/05/25, DI CHEST,SINGLE VIEW on DOS: 06/05/25, DI CHEST,SINGLE VIEW on DOS: 06/10/25 FINDINGS: Weighted feeding tube tip in the stomach. Tunneled right hemodialysis catheter tip in the SVC. Right IJ approach central venous catheter tip in the SVC. Lungs: Unchanged multifocal airspace opacities. Small bilateral pleural effusions are unchanged. No pneumothorax. Cardiomediastinal contours: Cardiomegaly Bones: Unremarkable IMPRESSION: Unchanged cardiomegaly with CHF small bilateral pleural effusions.
--- NOTE | 2025-06-11 17:57 | PROGRESS NOTE- Residence ---
Progress Note - Resident Providers to CC Resident Creating Document: EUGENE ESPITIA RES ~ Antibiotic Timeout Antibiotic Ordered?: No Subjective Patient was seen and examined at the bedside. No overnight symptoms, patient to undergo PEG tube placement tomorrow in a.m.. Objective Vital Signs Date Time Temp Pulse Resp B/P (MAP) Pulse Ox O2 Delivery O2 Flow Rate FiO2 06/11/25 11:00 64 20 147/44 (78) 96 Nasal Cannula 1.0 06/11/25 08:20 28 06/10/25 18:30 97.5 Result Diagram: 06/11/25 0330 06/11/25 0330 Heavily cachetic and nonverbal HEENT: Atraumatic, normocephalic, EOMI, anicteric sclera ; pink conjunctiva, left pupil hazy, right pupil and with a normal limits Neck: Trachea midline. Supple, full range of motion, no JVD Cardiac: Regular rhythm, regular rate with systolic murmurs all over the precordium. Respiratory: Diminished breath sounds bilaterally, right-sided dialysis port in place Gastrointestinal: No surgical scars noted, abdominal wall thin with no evidence of any scar tissues Musculoskeletal: No pedal edema Neurological: Could not be performed Skin: Warm and dry Coagulation Studies Laboratory Tests Test 06/05/25 16:27 Prothrombin Time 13.1 SECONDS (9.0-12.0) H INR International Normalized Ratio 1.3 INR Activated Partial Thromboplast Time 35 SECONDS (22-32) H Coagulation Comments Advance Care Planning Advanced Care plannin - 30 Minutes Assessment Assessment Plan Plan Critically ill 64-year-old female with a ESRD, severe malnutrition and persistent poor oral intake requiring long-term enteral support. Patient is currently tolerating tube feeds but is not expected to regain adequate p.o. intake. Peg tube placement is indicated to facilitate nutritional goals at this point of time. Plan PEG tube placement on 06/12 as scheduled Continue tube feeds via existing access until PEG tube is completed Monitor for platelet count, acceptable to procedure if remains stable Patient is currently not on any anticoagulation We will reassess tolerance and function of PEG tube post placement NPo after midnight JAYNE on chronic kidney disease Dialysis schedule- MWF Continue management per nephrology Nutrition consulted for tube feeds Acute hypoxemic respiratory failure Hypertensive emergency with Acute pulmonary edema Multifocal bilateral pneumonia, aspiration pneumonia Normocytic hypochromic anemia Thrombocytopenia Severe Protein malnutrition Hypoalbuminemia Further management of comorbidities per primary team Code Status: DNR Eugene Espitia MD Internal Medicine Resident, PGY-2 Date of Service: Jun 11, 2025 Billing Provider: FRANCISCO MORGAN MD,EUGENE, RES Jun 11, 2025 17:57
--- NOTE | 2025-06-11 18:41 | PROGRESS NOTE ---
Daily Progress Note Providers to CC ~ Antibiotic Timeout Antibiotic Ordered?: Yes Subjective I spoke with the patient's daughter Dang at bedside this afternoon. Daughter did ask me why her mother was not talking and informed me that the she was talking prior to this admission. We had a conversation about her mother's quality of life she informs me that her mother use to work 10 years ago and would cooking has a family gatherings. I did ask if she would have wanted to be in his state and she informed me know she did understand however there are sister's involved and she will discuss with her sisters if this is the right course of action. Did inform her that she did not do good with physical therapy and would need to go to an [facility]. The patient has coarse breath sounds there were mild chest x-ray showed pulmonary vascular congestion and bilateral small pleural effusions the patient is not produce urine and thus Lasix would not help with removing this fluid. Objective Vital Signs Date Time Temp Pulse Resp B/P (MAP) Pulse Ox O2 Delivery O2 Flow Rate FiO2 06/11/25 11:00 64 20 147/44 (78) 96 Nasal Cannula 1.0 06/11/25 08:20 28 06/10/25 18:30 97.5 Result Diagram: 06/11/25 0330 06/11/25 0330 Gen. No acute distress alert and oriented, cachectic Lungs faint coarse breath sounds are scattered throughout all listening ibanez Heart normal sinus rhythm no murmurs rubs or clicks noted Abdomen soft nontender bowel sounds are normoactive Lower extremities no clubbing cyanosis, nor edema appreciated bilaterally Coagulation Studies Laboratory Tests Test 06/05/25 16:27 Prothrombin Time 13.1 SECONDS (9.0-12.0) H INR International Normalized Ratio 1.3 INR Activated Partial Thromboplast Time 35 SECONDS (22-32) H Coagulation Comments Problem\Assessment\Plan Problems/Diagnosis: (1) ESRD (end stage renal disease) Acute hypoxemic respiratory failure The patient was extubated today Oxygen saturation is in the high 90s on 2 L 06/10 chest x-ray today was unchanged 06/11 small bilateral pleural effusions are present Lasix would not benefit the patient Hypertensive emergency with Acute pulmonary edema Resolved Multifocal bilateral pneumonia, aspiration pneumonia IV Zosyn and IV vancomycin Acute metabolic encephalopathy Resolved The patient is minimally responsive 06/10 per patient's daughter this is the patient's steady state for approximally one year 06/11 Dang the patient is daughter informs me that the patient was talking prior to this hospitalization I did inform her that the patient is sometimes do get vocal cord injuries from intubation also this maybe her new baseline since the patient was critically ill on arrival to the hospital. Bilateral internal carotid artery disease without significant stenosis JAYNE on chronic kidney disease Currently on [employer] which will be discontinued today 06/08/2025 The patient is a restart prior dialysis scheduled 06/10 received dialysis today in his followed by Nephrology Hyponatremia Hypokalemia Hypochloremia Resolved Continue to monitor Normocytic hypochromic anemia Thrombocytopenia Platelet [place] to [place] [address] Hemoglobin slightly downtrended to 7.7 today Continue to monitor and transfuse if hemoglobin drops below seven or platelets [place] [address] or any signs of bleeding 06/09 [place] [address]- continue to monitor 06/11 [place] [address] today Nutrition The patient has very poor p.o. intake 06/09 a [place] feeding tube was placed and registered dietitian started the patient on tube feedings 06/10 the patient has pulled out the [place] tube a couple of times now- I discussed the case with manager property Dr. Ortiz who has a agreed to place a PEG tube which is scheduled for the Disposition: Home with home health once medically stable 06/09 the patient is barely responsive and not eating I think you would be quite reasonable to reconvene and meet with the patient's daughter along with case management and myself to try to sort this out as at this juncture my opinion the patient would be best served with hospice and end of life care however the daughter declined hospice care on 06/08 06/10 anticipate discharge home with home health once PEG tube is placed and the patient is tolerating PEG tube feeds which the PEG tube will be placed by Gastroenterology on the 06/11 I had a conversation with Dang [phone] the patient's daughter about her mother's quality of life she informs me that her mother use to work 10 years ago and would cooking has a family gatherings. I did ask if she would have wanted to be in his state and she informed me know she did understand however there are sister's involved and she will discuss with her sisters if this is the right course of action. Did inform her that she did not do good with physical therapy and would need to go to an [facility]. The patient has coarse breath sounds there were mild chest x-ray showed pulmonary vascular congestion and bilateral small pleural effusions the patient is not produce urine and thus Lasix would not help with removing this fluid. Sepsis Screening Skin Color: Normal Date of Service: Jun 11, 2025 Billing Provider: MARY DU DO Common Visit Codes: [id number] INP/OBS CARE(HIGH) MARY DU DO Jun 11, 2025 18:41
--- NOTE | 2025-06-11 20:23 | PROGRESS NOTE- Residence ---
Progress Note - Resident Providers to CC Resident Creating Document: CARRIE BARKER RES CC: SHIRLEY NUNEZ MD ~ Antibiotic Timeout Antibiotic Ordered?: Yes Subjective Patient was seen and examined at the bedside. No overnight symptoms, patient to undergo PEG tube placement tomorrow in a.m.Patient is going to undergo another session of dialysis tomorrow. Objective Vital Signs Date Time Temp Pulse Resp B/P (MAP) Pulse Ox O2 Delivery O2 Flow Rate FiO2 06/11/25 19:27 62 16 95 Nasal Cannula* 1 24 06/11/25 11:00 147/44 (78) 06/10/25 18:30 97.5 Heavily cachetic and nonverbal HEENT: Atraumatic, normocephalic, EOMI, anicteric sclera ; pink conjunctiva, left pupil hazy, right pupil and with a normal limits Neck: Trachea midline. Supple, full range of motion, no JVD Cardiac: Regular rhythm, regular rate with systolic murmurs all over the precordium. Respiratory: Diminished breath sounds bilaterally, right-sided dialysis port in place Gastrointestinal: No surgical scars noted, abdominal wall thin with no evidence of any scar tissues Musculoskeletal: No pedal edema Neurological: Could not be performed Skin: Warm and dry Result Diagram: 06/11/25 0330 06/11/25 0330 Coagulation Studies Laboratory Tests Test 06/05/25 16:27 Prothrombin Time 13.1 SECONDS (9.0-12.0) H INR International Normalized Ratio 1.3 INR Activated Partial Thromboplast Time 35 SECONDS (22-32) H Coagulation Comments Assessment Assessment Plan Plan Assessment: Critically ill 64-year-old Emirati-speaking woman(poor historian- non verbal) brought in by paramedics from dialysis center because of altered mental status that was sudden 40 minutes into dialysis JAYNE on chronic kidney disease Dialysis schedule- MWF Hypocalcemia Hypokalemia-replacement protocol in place - another session of dialysis scheduled for tomorrow -patient's creatinine today is 1.23 after dialysis yesterday Acute hypoxemic respiratory failure Hypertensive emergency with Acute pulmonary edema Multifocal bilateral pneumonia, aspiration pneumonia -patient is currently on 2 L of oxygen saturating at 96% Normocytic hypochromic anemia Thrombocytopenia -Epotein jodie 15,000 unit one dose given today -continue to monitor platelets Severe Protein malnutrition Hypoalbuminemia -patient is going to get her PEG tube placed tomorrow as per Gastroenterology team Code status: DNR Diet: NPO DVT prophylaxis:SCDs Lines and tubes: Peripheral lines/right internal jugular vein central line Prognosis: Guarded Disposition-we will continue to monitor the patient. Carrie Barker Internal medicine resident,PGY-1 Date of Service: Jun 11, 2025 Billing Provider: SHIRLEY NUNEZ MD, JAHNAVI, RES Jun 11, 2025 20:23
[2025-06-11] MEDS: ipratropium/albuterol 3ml nebule NEB SCH (21:24)
[2025-06-12 00:39] VITALS: RESP 14
[2025-06-12] MEDS ORDERED: heparin 1,000 units/ml 10ml inj HE ONE ×2 (08:00)
[2025-06-12] MEDS ORDERED: albumin (human) 25% 100ml IV 100 ML IV PRN (08:00)
[2025-06-12] MEDS ORDERED: EPOETIN ALFA-EPBX 20,000 UNIT/ML 1 ML MDV IV ONE (08:00)
--- NOTE | 2025-06-12 17:51 | DISCHARGE SUMMARY ---
Discharge Summary Providers to CC ~ Discharge Summary Admission Diagnosis: HYPERTENSIVE EMERGENCY, ACUTE METABOLIC ENCEPHALOPATHY Hospital Course DATE OF ADMISSION: 06/05/2025 DATE OF DISCHARGE: 06/12/2025 patient at 02:45 Discharge Diagnosis\\Comment: Acute hypoxic respiratory failure, hypertensive emergency with acute pulmonary edema, multifocal bilateral pneumonia, acute metabolic encephalopathy, acute on chronic kidney disease on dialysis, hyponatremia/hypochloremia/hypokalemia, normocytic anemia/thrombocytopenia Operations\\Procedures: Mechanical intubation and ventilation/ heme dialysis Consultants: Dr. Felipe Modi Telemedicine neurology, tele neurologist EEG specialist, Dr. Miranda drawer fitter, Complications: The patient on 06/12/2025 at 2:45 a.m. Condition on DC: (@ 02:45) Discharge Summary: The patient was admitted by resident physician ASHELY Campos under the supervision of ALEXSANDRA Haddad MD with the following HPI:"64-year-old Georgian-speaking woman(poor historian-non verbal) brought in by paramedics from dialysis center because of altered mental status that was sudden 40 minutes into dialysis. Patient's last known well time was approximately 3:00 p.m.. Patient's pulse ox was on the low 90s on room air. Patient was noted to have audible gurgling and rhonchi. Patient was placed on 2 L nasal cannula and pulse ox is 96-98%. Patient's extremities are flaccid and patient's eyes are open. Patient does not follow commands. Patient is nonverbal. She is unable to protect the airway and hearing the gurgling sounds ." The patient has been on a mechanical ventilator initially and then was extubated 06/07/2025 and her oxygen saturation has been stable on 1-2 L of oxygen the patient did have multifocal pneumonia and treated with IV Zosyn. The patient started having more dyspnea on the morning of the I ordered chest x-ray showed small bilateral pleural effusions I spoke with the patient's daughter and discovered the patient has essentially no urine output for several years she has been on dialysis for five years thus Lasix was not indicated as this would not change the patient's condition. The patient went into respiratory failure and the patient is appeared to be actively passing has a of 0106 in the morning of the the patient had very poor p.o. intake and has a arrange for GI to place a PEG tube on the morning of the however the patient her respiratory failure and 244 The patient has been unresponsive and a tele neurology consult was obtained which the patient had recommendations of a stroke workup as well as EEG which demonstrated diffuse slowing however no seizures were discovered. The patient has thrombocytopenia her [place] 62120 [place] [address] four several days including the and on the her platelet count was 49277. Patient has a end-stage renal disease and has been on dialysis for five years and received dialysis during hospitalization. The patient's family is requested that the remains be taken to [facility] *Problems/Diagnosis: (1) ESRD (end stage renal disease) Total Time Spent on D/C: > 30 Minutes Date of Service: Jun 12, 2025 Billing Provider: MARY DU DO Common Visit Codes: NOT BILLABLE ( prior to being seen) MARY DU DO Jun 12, 2025 17:40
--- NOTE | 2025-06-12 17:56 | Death Certificate Worksheet ---
Certificate Worksheet Date of Date of : Jun 12, 2025 Cause of / Time Intervals Cause of IMMEDIATE CAUSE (Final Disease or *Time Between Onset and condition resulting in ) [Hours (H), Days (D),Week's (W),Month's (M ),Year's (Y)] A) respiratory failure *Time: Days B) multifocal pneumonia *Time: Days C) failure to thrive *Time: Months to years D) *Time: E) *Time: Other Significant Conditions Other Significant Conditions Thrombocytopenia. Chronic kidney disease on dialysis, Operations & Dates Performed Operations & Dates Performed Mechanical intubation If Female, in Last YR.: No Biopsy: No First Time Seen.: Jun 05, 2025 Last time Seen: Jun 11, 2025 Home Other [employer] [facility] in [place] License Number [id number] Physicians Mailing Address Hospitalist Mailing Address: [address] [facility], [address] MARY DU DO Jun 12, 2025 17:56
== END 2025-06-12 06:32 | DRG 871 ==
LOC: ER 16:19 → ED HOLD 18:42 → CICU 2S 20:22 → PCU 3S 06-08 16:42 → SUR 3N 06-10 17:48
PROVIDERS: ADMIT Internal Medicine Critical Care Medicine; ATTEND Internal Medicine Critical Care Medicine
PROC: 5A1945Z Respiratory Ventilation, 24-96 Consecutive Hours (ICD-10-PCS; principal; 2025-06-05)
PROC: 0BH17EZ Insertion of Endotracheal Airway into Trachea, Via Natural or Artificial Opening (ICD-10-PCS; 2025-06-05)
PROC: 02HV33Z Insertion of Infusion Device into Superior Vena Cava, Percutaneous Approach (ICD-10-PCS; 2025-06-05)
PROC: B548ZZA Ultrasonography of Superior Vena Cava, Guidance (ICD-10-PCS; 2025-06-05)
PROC: B3251ZZ Computerized Tomography (CT Scan) of Bilateral Common Carotid Arteries using Low Osmolar Contrast (ICD-10-PCS; 2025-06-05)
PROC: B32G1ZZ Computerized Tomography (CT Scan) of Bilateral Vertebral Arteries using Low Osmolar Contrast (ICD-10-PCS; 2025-06-05)
PROC: B32R1ZZ Computerized Tomography (CT Scan) of Intracranial Arteries using Low Osmolar Contrast (ICD-10-PCS; 2025-06-05)
PROC: B3281ZZ Computerized Tomography (CT Scan) of Bilateral Internal Carotid Arteries using Low Osmolar Contrast (ICD-10-PCS; 2025-06-05)
PROC: 6A550Z3 Pheresis of Plasma, Single (ICD-10-PCS; 2025-06-06)
PROC: 4A00X4Z Measurement of Central Nervous Electrical Activity, External Approach (ICD-10-PCS; 2025-06-06)
PROC: 5A1D90Z Performance of Urinary Filtration, Continuous, Greater than 18 hours Per Day (ICD-10-PCS; 2025-06-07)
PROC: 5A1D90Z Performance of Urinary Filtration, Continuous, Greater than 18 hours Per Day (ICD-10-PCS; 2025-06-07)
PROC: 5A1D70Z Performance of Urinary Filtration, Intermittent, Less than 6 Hours Per Day (ICD-10-PCS; 2025-06-10)
DX: A41.9 Sepsis, unspecified organism (principal); E43 Unspecified severe protein-calorie malnutrition; J96.01 Acute respiratory failure with hypoxia; J69.0 Pneumonitis due to inhalation of food and vomit; G93.41 Metabolic encephalopathy; N18.6 End stage renal disease; R65.21 Severe sepsis with septic shock; J18.9 Pneumonia, unspecified organism; N17.9 Acute kidney failure, unspecified; I16.1 Hypertensive emergency; E87.1 Hypo-osmolality and hyponatremia; Z68.1 Body mass index [BMI] 19.9 or less, adult; I12.0 Hypertensive chronic kidney disease with stage 5 chronic kidney disease or end stage renal disease; I67.4 Hypertensive encephalopathy; Z66 Do not resuscitate; E11.22 Type 2 diabetes mellitus with diabetic chronic kidney disease; E87.6 Hypokalemia; F32.A Depression, unspecified; E83.51 Hypocalcemia; D50.9 Iron deficiency anemia, unspecified; D69.59 Other secondary thrombocytopenia; D75.839 Thrombocytosis, unspecified; E87.70 Fluid overload, unspecified; E88.09 Other disorders of plasma-protein metabolism, not elsewhere classified; Z51.5 Encounter for palliative care; Z99.2 Dependence on renal dialysis
CPT/HCPCS: 31500; 36415; 36600; 70450; 70496; 70498; 70551; 71045; 74018; 80048; 80053; 80202; 80320; 82140; 82330; 82803; 82948; 83036; 83605; 83735; 83880; 84100; 84134; 84145; 84443; 84478; 84484; 85007; 85008; 85018; 85025; 85610; 85730; 86885; 86900; 86901; 87081; 87340; 92508; 92616; 93005; 93306; 94002; 94003; 94640; 94760; 94799; 95816; 99291; 99292; A4421; A4615; A4624; A6196; A6212; A6213; A6253; A6258; A6260; A6449; C1751; C1758; E1594; G0257; G0378; J0360; J0696; J1644; J2270; J2470; J2543; J2704; J3010; J3373; J3480; J3490; J7030; J7040; J7060; J7070; J7121; Q4081; Q9967